=== PATIENT | male | born 1950 | race Caucasian/White ===

== ENCOUNTER 2018-06-18 20:06 | Inpatient (IN) | payer OTHER, BC ==
[~2018-06-18] VITALS: Ht 180.3 cm; Wt 84.5 kg
[2018-06-18 20:09] VITALS: BP 115/43
[2018-06-18] MEDS ORDERED: ASPIR 8181 MG PO (20:27)
[2018-06-18] MEDS ORDERED: BISACODYL SUPP10 MG RECTAL (20:28)
[2018-06-18] MEDS ORDERED: DEPAKOTE500 MG PO (20:29)
[2018-06-18] MEDS ORDERED: SYNTHROID88 MCG PO (20:29)
[2018-06-18] MEDS ORDERED: LISINOPRIL10 MG PO (20:29)
[2018-06-18] MEDS ORDERED: ATIVAN0.5 MG PO ×2 (20:31)
[2018-06-18] MEDS ORDERED: LORAZEPAM 22 MG/1 ML IM (20:31)
[2018-06-18] MEDS ORDERED: XALATAN2.5 ML OPHTHALMIC (20:35)
[2018-06-18] MEDS ORDERED: MAPAP325 MG PO (20:35)
[2018-06-18] MEDS ORDERED: METFORMIN HCL500 MG PO (20:35)
[2018-06-18] MEDS ORDERED: INVEGA SUS234 MG/1.5 IM (20:48)
[2018-06-18] MEDS ORDERED: GLUCAGON EMERGEN1 MG IM (20:49)
[2018-06-18] MEDS ORDERED: [UNRECOGNIZED DRUG - OTHER] (20:50)
[2018-06-18] MEDS ORDERED: SENEXON-S TABL1 EACH PO (20:51)
[2018-06-18] MEDS ORDERED: ROBAFEN100 MG/5 M PO (20:51)
[2018-06-18] MEDS ORDERED: EFFEXOR XR75 MG PO (20:52)
[2018-06-18] MEDS ORDERED: FLOMAX0.4 MG PO (20:52)
[2018-06-18 21:42] LABS: HEMATOCRIT 33.6 % (42.0-52.0); MCHC 32.7 g/dL (28.0-37.0); MCV 88.6 fL (80.0-100.0); PLATELET COUNT 245 thou/uL (150-400); RBC 3.79 mil/uL (4.50-6.00); RDW 16.1 % (10.5-14.5); WBC 18.4 thou/uL (4.0-11.0)
[2018-06-18 21:51] LABS: ANION GAP 7 mmol/L (7-16); BUN 21 mg/dL (7-18); CALCIUM 9.2 mg/dL (8.5-10.1); CHLORIDE 102 mmol/L (98-107); CO2 30 mmol/L (21-32); CREATININE 0.8 mg/dL (0.7-1.3); GLUCOSE 204 mg/dL (74-106); POTASSIUM 3.9 mmol/L (3.5-5.1); SODIUM 139 mmol/L (136-145)
[2018-06-18 21:54] LABS: APTT 28.1 Seconds (24.5-32.8); INR 1.3; PROTIME 13.6 Seconds (9.3-11.4)
[2018-06-18 22:00] LABS: ALBUMIN 2.6 g/dL (3.4-5.0); SGOT 9 U/L (15-37); SGPT 17 U/L (30-65); TOTAL BILIRUBIN 0.5 mg/dL (<0.1-1.0); TROPONIN-I <0.06 ng/mL (<0.06)
[2018-06-18 22:08] LABS: ABSOLUTE NEUTROPHILS 14.9 thou/uL (1.4-8.2); ANISOCYTOSIS 1+
[2018-06-18 23:52] VITALS: BP 116/49
[2018-06-19] VITALS (11 sets, daily range): BP systolic 110–133; BP diastolic 43–82
--- NOTE | 2018-06-19 00:37 | NUR ---
PT REPORTS NO KNOWN ALLERGIES, NO DRUG ALLERGIES, THIS WAS CONFIR[facility] WITH [facility] AT [facility]
--- NOTE | 2018-06-19 01:30 | EKG ---
[address] [address] ELECTROCARDIOGRAM REPORT Name: GEORGIA MCCLAIN Room #: 205-P ADM IN M.R.#: [id number] ������������������ Admission: 06/18/18 ������������������ Attend Phys: Jesús Dennison MD Discharge: ������������������ Date of : 52 Report #: [id number] ����������������������������������������������������������������� [id number] THIS REPORT FOR: //name// [facility] ED Test Date: 2018-06-18 Test Time: 21:56:02 Pat Name: GEORGIA MCCLAIN Department: Room: 205 Gender: M Sql Database Developer: LEIGH ANN : 1950 Requested By: Anjel Paige Order Number: [id number] MD: Joseph Rouse Measurements Intervals [place] Rate: 83 P: 34 VA: 174 QRS: 19 QRSD: 74 T: 32 QT: 344 QTc: 405 Interpretive Statements Sinus rhythm early transition Nonspecific ST-T wave changes Baseline wander in lead(s) V1,V2 No previous ECG available for comparison Electronically Signed On 06-19-2018 1:29:57 CDT by Joseph Rouse [email or web address] ��������������������������������������������� <ELECTRONICALLY SIGNED> ���������������������������������������� By: Joseph Rouse MD ��������������������������������������������� 06/19/18 0129 55 55 Joseph Rouse MD /EPI
--- NOTE | 2018-06-19 03:01 | NUR ---
PT ARRIVED ON UNIT FROM ER AT 0100. ADMITTED FROM [facility] WITH FREQUENT FALLS AND DIZZINESS. DENIES PAIN. VOIDING PER URINAL. RESTING COMFORTABLY. NO NEEDS VOICED. CALL LIGHT WITHIN REACH. WILL CONTINUE TO PROVIDE FREQUENT OBSERVATION.
[2018-06-19 05:20] LABS: HEMATOCRIT 30.2 % (42.0-52.0); HEMOGLOBIN 9.7 gm/dL (14.0-18.0); MCH 28.7 pg (26.0-34.0); MCHC 32.3 g/dL (28.0-37.0); MCV 88.8 fL (80.0-100.0); RBC 3.4 mil/uL (4.50-6.00); RDW 15.9 % (10.5-14.5); WBC 17.8 thou/uL (4.0-11.0)
[2018-06-19 05:25] LABS: CALCIUM 8.6 mg/dL (8.5-10.1); CREATININE 0.7 mg/dL (0.7-1.3); POTASSIUM 3.8 mmol/L (3.5-5.1)
--- NOTE | 2018-06-19 14:51 | NUR ---
Met with patient who reports he resides in Assisted living at [facility]. Patient reports he resides on 3rd floor. On 3rd floor there are stairs so cannot use a walker on 3rd floor and second floor has ramp. Sp with Rupinder at [facility] who reports they were already in process of transition to second floor. They believed patient likely would go to skilled unit prior to returning to Assisted Living. Sister reports thats an assumption on their part and not sure that is needed at this time. Casemgt following.
--- NOTE | 2018-06-19 16:17 | NUR ---
PT. RESIDES AT [facility] FAXED CLINICAL UPDATE TO FACILITY SPOKE WITH BERYL IN ADM, SHE RECEIVED UPDATE. DCP TO FOLLOW.
--- NOTE | 2018-06-19 16:47 | NUR ---
PT ALERT AND ORIENTED TIMES FOUR, SOMEWHAT SLOW TO RESPOND TO QUESTIONS. VSS, 98%2L, SR ON TELE. PT DENIES PAIN/SOA. PT TOLERATES MEDS AND MEALS. PT UP TO BSC WITH ASSIST OF ONE. FAMILY AT BEDSIDE. PT SLOWLY PROGRESSING TOWRADS POC GOALS.
--- NOTE | 2018-06-20 02:24 | NUR ---
ASSESSMENT DOCUMENTED.PT BEEN RESTING IN NO ACUTE DISTRESS.A/OX4.ADMITTED D/T HAVING MUTIPLE FALLS AT HOME.FALL PRECAUTIONS IN PLACE.ASSIST WITH TOILETING.FREQUENT REMINDER TO USE CALL LIGHT.ON ABT THERAPY,TOLERATING.NO CONCERNS NOTED.WILL CONT TO MONITOR PER POC.
[2018-06-20 04:20] VITALS: BP 132/59
[2018-06-20 07:25] VITALS: BP 131/59
[2018-06-20 11:08] VITALS: BP 130/59
[2018-06-20 11:12] LABS: FOLIC ACID 19.5 ng/mL (8.6-58.9)
[2018-06-20 15:29] VITALS: BP 130/46
--- NOTE | 2018-06-20 15:31 | NUR ---
Physical therapy signed off recommendation of walker. Casemgt in process of obtaining walker for home. Neuro consulted. casemgt following for possible HH at [place].
[2018-06-20 19:45] VITALS: BP 135/53
[2018-06-20 23:11] LABS: URINE BILIRUBIN NEGATIVE (Negative); URINE BLOOD NEGATIVE (Negative); URINE CLARITY SL CLOUDY; URINE COLOR YELLOW; URINE GLUCOSE-RANDOM* NEGATIVE (Negative); URINE KETONES NEGATIVE (Negative); URINE LEUKOCYTES-REFLEX NEGATIVE (Negative); URINE NITRITE-REFLEX NEGATIVE (Negative); URINE PROTEIN (DIPSTICK) NEGATIVE (Negative); URINE SPECIFIC GRAVITY 1.015 (1.005-1.035)
[2018-06-21 04:03] LABS: CALCIUM 8.8 mg/dL (8.5-10.1); CREATININE 0.6 mg/dL (0.7-1.3); MAGNESIUM 1.8 mg/dL (1.8-2.4); POTASSIUM 3.8 mmol/L (3.5-5.1)
[2018-06-21 04:19] LABS: HEMATOCRIT 31.1 % (42.0-52.0); HEMOGLOBIN 10.1 gm/dL (14.0-18.0); MCHC 32.6 g/dL (28.0-37.0); MCV 89.1 fL (80.0-100.0); PLATELET COUNT 260 thou/uL (150-400); RBC 3.49 mil/uL (4.50-6.00); RDW 15.9 % (10.5-14.5); WBC 11.1 thou/uL (4.0-11.0)
--- NOTE | 2018-06-21 04:43 | NUR ---
following poc with ivpb antibiotics. hourly rounding. collected urine sample and results are back. will follow up to make sure neuro consult has been called as it is not documented in the orders. pt only complaint is he wants doctor to change his divalproex due to making him feel funny.
[2018-06-21 04:55] VITALS: BP 130/53
[2018-06-21 05:06] LABS: ABSOLUTE NEUTROPHILS 6.7 thou/uL (1.4-8.2)
[2018-06-21 05:07] LABS: PLATELET ESTIMATE NORMAL; POLYCHROMASIA 1+
[2018-06-21 07:05] VITALS: BP 129/60
[2018-06-21 11:16] VITALS: BP 119/58
--- NOTE | 2018-06-21 14:02 | NUR ---
Patient admits from [facility] 3rd floor assisted living. Patient cannot have walker on 3RD floor. PT has recommened home with HH. OT recommends HH but needs supervision for bathing initially at ma. Nikki Yeh from [facility] completed onsite eval today. They use [facility]. [facility] reports can fax orders to them in am and they will arrange HH with [facility] they have office in [facility] and walk orders to HH agency. Sp with sister and patient they have no preference for HH agency and agreeable to [facility]. Sister to transport to [facility]. There is an apt on second floor for patient and he will transition to second floor at ma. Family moving his belongings today to second floor apt. Therapy recommended a walker, rec script and patient has walker for home. Plan HH at ma possibly ma tomorrow.
--- NOTE | 2018-06-21 15:27 | NUR ---
ASSESSMENT CHARTED - MEDS PER MAY -PT UP IN CHAIR AMBULATING IN ROOM WITH THE USE OF A WALKER. SEEN BY PHYS AND OCC THERAPY THIS SHIFT - MARYANN DIET AND FLUIDS - NO CO'S OF PAIN OR NASUEA. PT WILL PROBABLY RETURN TO [facility] TOMORROW. NO CO'S AT THE PRESENT TIME.
--- NOTE | 2018-06-21 17:58 | EEG ---
[facility] [place] [address] ELECTROENCEPHALOGRAM Name: GEORGIA MCCLAIN Room #: 205-P [facility] IN M.R.#: [id number] ������������������ Admission: 06/18/18 ������������������ Attend Phys: Puja Lucero MD Discharge: ������������������ Date of : 52 Report #: [id number] ����������������������������������������������������������������� [id number] THIS REPORT FOR: //name// CC: Puja Joyh [facility] DATE OF SERVICE: 06/20/2018 This patient is being evaluated for possibility of seizures. The patient's EEG was done by placing the electrode by standard 10-20 system of electrode placement. Both referential and sequential montages were used for recording. Background activity in this patient's EEG is about 11 Hz and 30 microvolt. This patient became drowsy and that is associated with bilateral slowing and vertex sharp waves. Photic stimulation is unremarkable. Throughout the record, no active epileptiform activity was noticed. IMPRESSION: This patient's EEG is within normal limit. Thank you very much for this referral. ���������������������������������������� <ELECTRONICALLY SIGNED> ���������������������������������������� By: Armando Gleason MD ��������������������������������������������� 06/21/18 1758 1411 1513 Armando Gleason MD /nt
--- NOTE | 2018-06-21 18:00 | HC ---
[facility] [place] [address] CONSULTATION Name: GEORGIA MCCLAIN Room #: 205-P [facility] IN M.R.#: [id number] Admission: 06/18/18 ������������������ Attend Phys: Puja Lucero MD Discharge: ������������������ Date of : 51 Report #: [id number] THIS REPORT FOR: //name// CC: Puja Powell DATE OF SERVICE: 06/20/2018 HISTORY OF PRESENT ILLNESS: This is a 67-year-old male patient who was evaluated by me for any neurological cause for his presyncope-like episode. He says that he had falls. During the falls, he is fully conscious. He says that he lose strength in all 4 extremities. He says he is a diabetic, but nobody has checked her blood pressure or blood sugar during these episodes. He does have intermittent dizziness, but nobody has checked his blood pressure or pulse. I reviewed the patient's MRI and MRA and they were unremarkable. REVIEW OF SYSTEMS: Positive for multiple things. They include diabetes, hypothyroidism, anxiety, depression. 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 He has stayed inside that time. Presently, he lives in assisted living. He does not give me a good reason he was in assisted living. He has history of hyperlipidemia, benign prostatic hypertrophy, urinary tract infections, hypothyroidism, depression and anxiety. This was his relevant 14-point review of system. PAST MEDICAL HISTORY: Positive for these falls. FAMILY HISTORY: Negative for any early age stroke. SOCIAL HISTORY: He lives in assisted living. PHYSICAL EXAMINATION: Indicate he is alert, responsive, able to follow simple commands. His memory is somewhat diminished, but I think that is his baseline. Cranial nerve examination on my examination appear mostly unremarkable. There has been question of nystagmus in this patient. His strength, sensation, reflexes and tone are symmetrical. There is no asymmetry in his reflexes. There is no cerebellar sign. I could not look at the patient's fundus. The patient is a well-developed individual who does not have any dysmorphic features of eyes, ears and face. His vision and hearing are adequate. He has no thyroid mass. No respiratory difficulty or rhonchi on either side. Cardiac examination is unremarkable. Pulses are difficult to feel. There is no edema. Blood pressure is 130/46, respirations 18, pulse is 78, temperature is 98.5. LABORATORY DATA: White count is 17.8 and GFR is normal at 113. TSH is 351 and B12 is 263. IMPRESSION: I told him that the etiology of his spell is not clear. The [address] [address] CONSULTATION Name: GEORGIA MCCLAIN Room #: 205-P [facility] IN M.R.#: [id number] Admission: 06/18/18 ������������������ Attend Phys: Puja Lucero MD Discharge: ������������������ Date of : 51 Report #: [id number] thing he should do is that when he has dizziness, he should check for his blood pressure, pulse and blood sugar. Those will be more common cause for the symptoms he is having. If they are normal, then the further workup can be done. I do not know what further neurological workup can be done because his MRIs and MRA are unremarkable. I did order an EEG and if that is abnormal, we will follow up this patient, but if that is normal, neurologically limited thing can be done. time spent 50 minutes. Majority of that time was spent counseling and coordinating Thank you very much for this referral. ��������������������������������������������� <ELECTRONICALLY SIGNED> ���������������������������������������� By: Armando Gleason MD ��������������������������������������������� 06/21/18 1800 1617 0507 Armando Gleason MD /nt
[2018-06-21 19:41] VITALS: BP 151/74
[2018-06-22 03:28] VITALS: BP 147/62
[2018-06-22 03:55] VITALS: BP 147/62
[2018-06-22 07:37] VITALS: BP 146/69
--- NOTE | 2018-06-22 07:55 | NUR ---
PT AO X 4. DENIES PAIN. VITALS STABLE. BG STABLE. CONTINUES WITH ABX. WILL CONTINUE TO FOLLOW POC.
[2018-06-22] MEDS ORDERED: IPRAT-ALBUT 0.5-3 ML INH (11:40)
[2018-06-22] MEDS ORDERED: AUGMENTIN 875-1 EACH PO (11:40)
[2018-06-22] MEDS ORDERED: B-12500 MCG PO (11:40)
[2018-06-22 11:49] VITALS: BP 147/62
[2018-06-22 11:58] VITALS: BP 102/61
--- NOTE | 2018-06-22 12:59 | NUR ---
PT. [facility] SPOKE WITH BERYL IN ADM. SHE RECEIVED DC ORDERS AND WILL SET UP HH WITH THEIR AGENCY. FAMILY TO TRANSPORT PT. BACK TO HIS A.L.UNIT NOTIFIED AND CHART COPY PER US. RN TO CALL REPORT TO [phone].
--- NOTE | 2018-06-22 15:02 | NUR ---
ASSESSMENT CHARTED - MEDS PER [facility] - NO CO'S OF PAIN OF NAUSEA - MARYANN DIET AND FLUIDS. PT UP IN ROOM WITH THE USE OF WALKER. [facility]. MONITOR AND IV REMOVED PRIOR TO D/C. PT TRANSFERED BACK VIA PVT VEHICLE ACCOMPANIED BY SISTER, LEFT UNIT VIA WHEEL CHAIR - NO CO'S AT TIME OF D/C.
== END 2018-06-22 14:55 | disposition home or self-care (01) | DRG 871 ==
LOC: ER 20:06 → 2N 22:53 → EROBS 22:53 → 2N 06-19 00:40 → ENTRNSPT 06-22 14:38 → EDTRNSPTSTS 06-22 14:46 → 2N 06-22 14:55
PROVIDERS: Emergency Medicine; Internal Medicine; Nurse Practitioner Family; ADMIT Internal Medicine
DX: A41.9 Sepsis, unspecified organism (principal); J69.0 Pneumonitis due to inhalation of food and vomit; I10 Essential (primary) hypertension; E78.5 Hyperlipidemia, unspecified; E11.9 Type 2 diabetes mellitus without complications; E03.9 Hypothyroidism, unspecified; N40.0 Benign prostatic hyperplasia without lower urinary tract symptoms; F32.9 Major depressive disorder, single episode, unspecified; F41.9 Anxiety disorder, unspecified; H55.09 Other forms of nystagmus; F20.9 Schizophrenia, unspecified; Z60.2 Problems related to living alone; M62.84 Sarcopenia; F39 Unspecified mood [affective] disorder; E53.8 Deficiency of other specified B group vitamins; Z87.891 Personal history of nicotine dependence; Z79.899 Other long term (current) drug therapy; Z79.82 Long term (current) use of aspirin
CPT/HCPCS: 10081

== ENCOUNTER → 2018-08-30 | Outpatient (CLI) | payer OTHER, BC ==
[~2018-08-30] MED LIST: ASPIR 8181 MG PO; ATIVAN0.5 MG PO; AUGMENTIN 875-1 EACH PO; B-12500 MCG PO; BISACODYL SUPP10 MG RECTAL; DEPAKOTE500 MG PO; EFFEXOR XR75 MG PO; FLOMAX0.4 MG PO; GLUCAGON EMERGEN1 MG IM; INVEGA SUS234 MG/1.5 IM; IPRAT-ALBUT 0.5-3 ML INH; LISINOPRIL10 MG PO; LORAZEPAM 22 MG/1 ML IM; MAPAP325 MG PO; METFORMIN HCL500 MG PO; MILK OF MA400 MG/5 M PO; ROBAFEN100 MG/5 M PO; SENEXON-S TABL1 EACH PO; SYNTHROID88 MCG PO; TRELEGY ELLIPT1 EACH; XALATAN2.5 ML OPHTHALMIC; [UNRECOGNIZED DRUG - OTHER]
== END ==
LOC: NUC 10:09
DX: M62.84 Sarcopenia (principal)

== ENCOUNTER 2018-09-03 19:02 | Inpatient (IN) | payer OTHER, BC ==
[~2018-09-03] VITALS: Ht 175.3 cm; Wt 88.1 kg
[~2018-09-03 19:02] MED LIST changes: -MILK OF MA400 MG/5 M PO; -TRELEGY ELLIPT1 EACH
[2018-09-03 19:07] VITALS: BP 135/50
[2018-09-03 19:27] LABS: HEMATOCRIT 34.5 % (42.0-52.0); MCH 28.1 pg (26.0-34.0); MCV 88.1 fL (80.0-100.0); PLATELET COUNT 212 thou/uL (150-400); RBC 3.92 mil/uL (4.50-6.00); RDW 17.1 % (10.5-14.5); WBC 20.3 thou/uL (4.0-11.0)
[2018-09-03 19:35] LABS: ANION GAP 12 mmol/L (7-16); BUN 25 mg/dL (7-18); CALCIUM 9.9 mg/dL (8.5-10.1); CHLORIDE 104 mmol/L (98-107); CO2 25 mmol/L (21-32); CREATININE 0.9 mg/dL (0.7-1.3); GLUCOSE 175 mg/dL (74-106); POTASSIUM 4.1 mmol/L (3.5-5.1); SODIUM 141 mmol/L (136-145)
[2018-09-03 19:43] LABS: TROPONIN-I <0.06 ng/mL (<0.06)
[2018-09-03 20:09] LABS: ABSOLUTE NEUTROPHILS 15.4 thou/uL (1.4-8.2); ANISOCYTOSIS 1+
[2018-09-04 01:33] LABS: URINE BILIRUBIN NEGATIVE (Negative); URINE BLOOD NEGATIVE (Negative); URINE CLARITY CLEAR; URINE COLOR YELLOW; URINE GLUCOSE-RANDOM* NEGATIVE (Negative); URINE KETONES NEGATIVE (Negative); URINE LEUKOCYTES-REFLEX NEGATIVE (Negative); URINE NITRITE-REFLEX NEGATIVE (Negative); URINE PROTEIN (DIPSTICK) NEGATIVE (Negative); URINE UROBILINOGEN 0.2 E.U./dl (0.2-1.0)
[2018-09-04 01:48] VITALS: BP 132/60
[2018-09-04] MEDS ORDERED: MILK OF MA400 MG/5 M PO (02:20)
[2018-09-04] MEDS ORDERED: TRELEGY ELLIPT1 EACH (02:21)
[2018-09-04] MEDS ORDERED: ROBAFEN100 MG/5 M PO (02:22)
[2018-09-04] MEDS ORDERED: MAPAP325 MG PO (02:24)
[2018-09-04 02:35] VITALS: BP 123/46
[2018-09-04 03:14] VITALS: BP 144/57
--- NOTE | 2018-09-04 04:49 | NUR ---
PT. ARRIVED ON THE UNIT FROM ED WITH HX OF FREQ FALLS. SLIGHT RED BRUISE ON BUTTOCKS NOTED AND 2 SCRATCHES ON KNEES FROM PREVIOUS FALLS . ALERT AND ORIENTEDX3 WITH SLIGHT WEAKNESS. DENIES PAIN. VSS AND ORDERS ACKNOWLEGDE. BED IN LOW POSITION AND CALL LIGHT WITHIN REACH WILL CONTINUE TO MONITOR.
[2018-09-04 07:45] VITALS: BP 140/50
--- NOTE | 2018-09-04 07:47 | EKG ---
[address] [address] ELECTROCARDIOGRAM REPORT Name: ZENGEORGIA MCCULLOUGH Zelalem Room #: 429-P ADM IN M.R.#: [id number] ������������������ Admission: 09/04/18 ������������������ Attend Phys: Puja Lucero MD Discharge: ������������������ Date of : 52 Report #: [id number] ����������������������������������������������������������������� [id number] THIS REPORT FOR: //name// [facility] ED Test Date: 2018-09-03 Test Time: 19:37:24 Pat Name: GEORGIA MCCLAIN Department: Room: 429 Gender: M Manager Process: QUETA : 1950 Requested By: Anjel Paige Order Number: [id number] MD: Fuentes Allred Measurements Intervals [place] Rate: 80 P: 24 DC: 166 QRS: 27 QRSD: 82 T: 49 QT: 358 QTc: 413 Interpretive Statements Sinus rhythm Normal tracing Compared to ECG 06/18/2018 21:56:02 No significant change was found Electronically Signed On 09-04-2018 7:47:40 CDT by Fuentes Allred [email or web address] ��������������������������������������������� <ELECTRONICALLY SIGNED> ���������������������������������������� By: Fuentes Allred MD, [facility] ��������������������������������������������� 09/04/18 0747 D: 06/1935 36 Fuentes Allred MD, FACC /EPI
--- NOTE | 2018-09-04 08:54 | NUR ---
ASSESMENT COMPLETED. VSS. A/O. NOTED TREMORS. DENIES PAIN. NO NOTED SOA. NO NV. PT RESTING IN BED. MEDS GIVEN ORDERED TOLERATED WELL. BED ALARM ON. WILL CONT. TO MONITOR.
--- NOTE | 2018-09-04 10:43 | NUR ---
INITIAL ASSESSMENT: Pt evaluated for d/c planning needs. Reviewed chart and spoke with nurse, pt and sister. Pt is alert and oriented. Pt normally lives at [facility] and was recently hospitalized at [facility] and went to [facility] SNF. Pt plans on returning to SNF at d/c from hospital. Asked program services planner to fax referral to [facility]. Will remain available to assist as needed.
[2018-09-04 17:49] VITALS: BP 138/48
[2018-09-04 20:50] VITALS: BP 128/48
--- NOTE | 2018-09-05 01:02 | NUR ---
ASSESSMENT COMPLETED. PT IS ALERT AND ORIENTED. A LITTLE FORGETFUL. PT SEEMS WEAK AND REPORTS CONTINUED WEAKNESS. STABLE ON ROOM AIR. AFEBRILE. NO COUGH NOTED.TOOK HS MEDS OKAY. HS BLOOD SUGAR OF 83.CONTINUES ON IV ABTS FOR PNEUMONIA.FALL PREC IN PLACE. WILL CONTINUE WITH POC TILL EOS.
[2018-09-05 05:30] VITALS: BP 181/66
[2018-09-05 05:59] LABS: HEMOGLOBIN 10.3 gm/dL (14.0-18.0); MCH 28.9 pg (26.0-34.0); MCHC 33.2 g/dL (28.0-37.0); RBC 3.57 mil/uL (4.50-6.00); RDW 17.5 % (10.5-14.5); WBC 8.7 thou/uL (4.0-11.0)
[2018-09-05 06:10] LABS: CALCIUM 8.7 mg/dL (8.5-10.1); CREATININE 0.7 mg/dL (0.7-1.3); POTASSIUM 3.7 mmol/L (3.5-5.1)
[2018-09-05 08:00] VITALS: BP 136/53
--- NOTE | 2018-09-05 09:12 | NUR ---
ASSESMENT COMPLETED. VSS. A/O. DENIES PAIN. NO NOTED SOA. NO NV. PT RESTING IN BED APPEARS COMFORTABLE. ASSISTED WHEN UP. BED ALARM ON. WILL CONT. TO MONITOR.
[2018-09-05 15:08] LABS: FOLIC ACID 17.4 ng/mL (8.6-58.9)
[2018-09-05 16:20] VITALS: BP 156/60
--- NOTE | 2018-09-05 19:29 | HC ---
[facility] [place] [address] CONSULTATION Name: ZENJAMELGEORGIA Room #: 429-P [facility] IN .R.#: [id number] Admission: 09/04/18 ������������������ Attend Phys: Puja Lucero MD Discharge: ������������������ Date of : 51 Report #: [id number] THIS REPORT FOR: //name// CC: Puja Powell DATE OF SERVICE: 09/04/2018 PULMONARY CONSULTATION REFERRAL PHYSICIAN: Dr. Miller. REASON FOR REFERRAL: Infiltrates. HISTORY OF PRESENT ILLNESS: The patient is a 68-year-old white male who was brought to the Emergency Room with progressive weakness. He fell again. He has recent pneumonia along with infiltrates. A pulmonary consultation was requested. The patient was most recently re-hospitalized at [facility] on 06/18/2018. He was admitted for presyncopal like episode along with falls. He also noted to develop weakness. The patient was recently seen in the pulmonary office by Dr. Tineo. His chest x-ray, chest CT showed consolidation involving the right lower lobe, right middle lobe and nodular opacity seen in the right middle lobe. Plans were to proceed with a PET scan imaging. In brief summary, the patient has been well up until of this past year. He then started to develop weakness along with falls. He states he has also lost weight. During his recent hospital stay, he was seen by Neurology. MRI, MRA of the brain was unremarkable. The EEG was abnormal. Otherwise, the patient denies any fever, night sweats or chills, chest pain, productive cough. PAST MEDICAL HISTORY: Atrial fibrillation, anxiety, depression, diabetes mellitus type 2, hypertension, hypothyroidism, schizophrenia. PAST SURGICAL HISTORY: Unremarkable. ALLERGIES: None. HOME MEDICATIONS: Acetaminophen, aspirin 81 mg once a day, Depakote 500 mg once a day, Robitussin p.r.n., Xalatan eyedrops 0.005% one drop at bedtime, Synthroid 88 mcg once a day, lisinopril 10 mg once a day, Ativan 0.5 mg q. 6 hours p.r.n., Glucophage 500 mg p.o. b.i.d., Flomax 0.4 mg once a day, Effexor 150 mg p.o. [address] [address] CONSULTATION Name: GEORGIA MCCLAIN Zelalem Room #: 429-P [facility].#: [id number] Admission: 09/04/18 ������������������ Attend Phys: Puja Lucero MD Discharge: ������������������ Date of : 52 Report #: [id number] b.i.d. along with Herminia-Colace and GlycoLax. FAMILY HISTORY: Noncontributory. SOCIAL HISTORY: Lifetime nonsmoker. He is . Denies any alcohol use. REVIEW OF SYSTEMS: As mentioned above, otherwise 10-point system review negative. PHYSICAL EXAMINATION: GENERAL: He is awake, alert, in no distress. VITAL SIGNS: Temperature is 98.5 degrees Fahrenheit, pulse is 76, respiratory rate 18, blood pressure is 140/50 mmHg, and saturation 93%. HEENT: Normocephalic, atraumatic. NECK: Supple, without any lymphadenopathy or thyromegaly. CHEST: Air movements are decreased due to poor effort. Few scattered crackles in the bases. Otherwise, no wheezes. CARDIOVASCULAR: Normal S1, S2. There are no murmurs or gallop. There is no JVD. There is no carotid bruit. Pulses are 2+/4+ bilaterally. ABDOMEN: Soft, nontender, no organomegaly or masses felt. GENITOURINARY: Deferred. RECTAL: Deferred. EXTREMITIES: There is no edema, cyanosis or clubbing. LABORATORY DATA: Chest x-ray shows mild right lower lobe and left lower lobe infiltrates. CT chest performed on 08/04/2018 shows consolidation involving the right middle lobe, mild infiltrate in the right lower lobe with small right-sided pleural effusion. CT head was unremarkable for any acute changes. Valproic acid level is 25. Procalcitonin level is normal. Electrolytes are normal. WBC 20,300, hemoglobin 11.0, platelets normal, no evidence of bandemia. IMPRESSION: 1. Progressive weakness, falls in this 68-year-old white male. Recent MRI/MRA was unremarkable along with EEG. He was recently seen by Neurology. Etiology remains unclear. 2. Right middle lobe, right lower lobe consolidation, small nodule opacities seen in the right middle lobe, suspect aspiration pneumonia. PET scan has been scheduled for this Tuesday at [facility]. Plans are for possible bronchoscopy with biopsy, pending results of the PET scan. 3. Chronic obstructive pulmonary disease, severe impairment, FEV1 measured 1.6 49% predicted, Trelegy has been recently initiated. 4. Hypothyroidism, on Synthroid. 5. Schizophrenia/anxiety/depression. 6. Diabetes mellitus type 2. 7. Hypertension. 8. Hypothyroidism. [facility] [address] [place] [address] CONSULTATION Name: GEORGIA MCCLAIN Room #: 429-P ADM IN .R.#: [id number] Admission: 09/04/18 ������������������ Attend Phys: Puja Lucero MD Discharge: ������������������ Date of : 52 Report #: [id number] RECOMMENDATION: I think it is reasonable to continue antibiotics, though I think this may be residual infiltrates from his recent pneumonia. Could consider reducing antibiotics if the patient remains afebrile. Leukocytosis may be reactive. Followup chest x-ray. The patient may benefit from ongoing neurologic evaluation regarding his progressive weakness and falls. DVT and GI prophylaxis recommended. ��������������������������������������������� <ELECTRONICALLY SIGNED> ���������������������������������������� By: Sylvain Flores MD ��������������������������������������������� 09/05/18 1929 1818 0202 Sylvain Flores MD /nt
[2018-09-05 21:55] VITALS: BP 137/49
[2018-09-06 03:00] VITALS: BP 170/59
--- NOTE | 2018-09-06 07:55 | NUR ---
PT DENIES PAIN. IS CONTINENT/INCONTINENT. DOING WELL ON ROOM AIR. GETTING RT TREATMENTS. PLAN FOR SOME MRI AND CT CHEST TODAY. PT AWARE OF PLAN.HE IS COOPERATIVE.
[2018-09-06 08:51] VITALS: BP 131/55
[2018-09-06 11:07] LABS: PSA 1.5 ng/mL (0.0-4.0)
--- NOTE | 2018-09-06 11:28 | NUR ---
FAXED REFERRAL TO [facility] FOR SKILLED STAY SPOKE WITH BERYL IN ADM SHE CAN ACCEPT PT AT DC. DCP TO FOLLOW.
--- NOTE | 2018-09-06 16:14 | NUR ---
Assumed pt care at 7am.Pt in bed alert and oriented but slow to respond. Assessment completed.vss.Dr Lucero here,order noted.Pt brother in law requested for Dr Machuca to call him for pt updates.Pt left for mri early this am and returned to floor 2hours later.Meds given as ordered and well tolerated. No verbal c/o.Will continue to monitor.
[2018-09-06 17:00] VITALS: BP 128/57
[2018-09-06 19:33] VITALS: BP 123/55
[2018-09-07 04:56] LABS: HEMATOCRIT 32.2 % (42.0-52.0); HEMOGLOBIN 10.5 gm/dL (14.0-18.0); MCH 28.9 pg (26.0-34.0); MCHC 32.7 g/dL (28.0-37.0); MCV 88.3 fL (80.0-100.0); RBC 3.65 mil/uL (4.50-6.00); WBC 6.8 thou/uL (4.0-11.0)
[2018-09-07 05:06] LABS: CALCIUM 8.6 mg/dL (8.5-10.1); CREATININE 0.7 mg/dL (0.7-1.3); POTASSIUM 3.8 mmol/L (3.5-5.1)
[2018-09-07 05:08] VITALS: BP 136/56
--- NOTE | 2018-09-07 05:16 | NUR ---
PT DENIED PAIN SO FAR.TYLENOL GIVEN X1 FOR LOW GRADE TEMP,EFFECTIVE.URINAL AT BEDSIDE FOR ELIMINATION.BG AT HS 83,NO TX INITIATED.PT RESTING ON HIS BED AT THIS TIME.FALL PRECAUTIONS IN PLACE,CALL LIGHT WITHIN REACH.
[2018-09-07 07:39] VITALS: BP 140/57
[2018-09-07 15:56] VITALS: BP 118/46
[2018-09-07 17:07] LABS: ANA INTERPRETATION Negative (())
[2018-09-07 19:27] VITALS: BP 136/50
--- NOTE | 2018-09-07 19:46 | NUR ---
Assumed pt care at 7am.Pt in and out of room for test.Assessment completed.vss Dr Hurtado and Brigette here,order noted.Pt sister was here today wanted to know if pt will be dc today.Rn told her that no dc order written for today but should check in am.Pt has speech study today and lashon perez recommended.Pt up to br with assist voided but no bm.Later this evening,pt was premed and Immunoglobulin iv initiated.Report off to noc rn.
--- NOTE | 2018-09-08 02:33 | NUR ---
PT DENIED PAIN BUT C/O CONSTIPATION.PER EMAR,PT GOT MIRALAX FROM AM NURSE BEFORE SHIFT CHANGE.PT GOT UP TO THE BSC WITH ASSIST X1 BUT WAS NOT ABLE TO HAVE A BM.WAS ONLY ABLE TO GET ONE PEBBLE OF HARD STOOL OUT.PT STILL CONFUSED AND FORGETFUL.FALL PRECAUTIONS IN PLACE,CALL LIGHT WITHIN REACH.
[2018-09-08 03:38] VITALS: BP 126/50
[2018-09-08 07:30] VITALS: BP 144/60
[2018-09-08 11:07] LABS: CEA 1.9 ng/mL (0.0-4.7)
--- NOTE | 2018-09-08 15:47 | NUR ---
FAXED CLINICAL UPDATE TO [facility] LEFT MS WITH BERYL IN ADM THAT UPDATE HAS BEEN SENT. POSS DC TUESDAY. DCP TO FOLLOW.
--- NOTE | 2018-09-08 16:27 | NUR ---
PT IN AND OUT OF BED TODAY FOR EXERCISES.FAIR ENDURANCE NOTED.ASSISTED PT WITH TRAY SETUP AT ALL MEALS.FAIR APPETITE.PT TOLERATED MEDS AND UP TO BSC FOR SMALL HARD FORMED STOOL AFTER MIRALAX GIVEN.DR TURNER HERE,ORDER NOTED.PT WILL HAVING ANOTHER DOSE IGG TODAY.BROTHER IN LAW HERE,UPDATES GIVEN.WILL CONTINUE TO MONITOR.
[2018-09-08 19:55] VITALS: BP 124/59
--- NOTE | 2018-09-09 02:05 | NUR ---
ASSESSMENT COMPLETED.PT CONT ON SWALLOW PRECAUTIONS.UP WITH ASSIST X1 AND WALKER TO BR.PT STILL ON IV IGG AND ZOSYN ORDERED.NO BM NOTED SO FAR,MIRALAX GIVEN BY AM NURSE.PT DENIED PAIN SO FAR,RESTING QUIETLY ON HIS BED AT THIS TIME.FALL PRECAUTIONS IN PLACE,CALL LIGHT WITHIN REACH.
--- NOTE | 2018-09-09 02:15 | NUR ---
ASSESSMENT COMPLEETD.PT DENIED PAIN/N/ SO FAR.PT CONT WITH IV IGG AND ZOSYN ORDERED.UP TO THE BR WITH 1 ASSIST AND WALKER.PT HAD ONE SMALL HARD BROWN STOOL,CONT ON MIRALAX DAILY.FALL AND SWALLOW PRECAUTIONS MAINTAINED.CALL LIGHT WITHIN REACH.
[2018-09-09 03:45] VITALS: BP 128/51
[2018-09-09 08:16] VITALS: BP 146/57
--- NOTE | 2018-09-09 15:27 | NUR ---
PT A&OX4, AMBULATES WITH ASSIST X1 AND WALKER. IV INTACT IN L FA AND R HAND. SITTING PT WITH ALL MEALS, NECTAR THICKENED LIQUIDS. WEAKNESS NOTED. BED ALARM ON, CALL LIGHT W/I REACH. WILL CONT POC.
[2018-09-09 16:23] VITALS: BP 129/53
[2018-09-09 19:26] VITALS: BP 146/58
--- NOTE | 2018-09-10 00:54 | NUR ---
PATIENT ALERT AND ORIENTED X4. COOPERATIVE WITH CARE. IVPB INFUSING W/O COMPLICATION. ASSIST WITH MOVEMENT IN BED. DENIES PAIN. BLOOD SUGAR MONITORED PER ORDER. PATIENT REMAINS VERY WEAK. TOLERATING NECTAR THICK LIQUIDS W/O COMPLICATION. RESTING QUIETLY AT TIME OF NOTE. WILL MONITOR.
[2018-09-10 05:24] VITALS: BP 145/74
[2018-09-10 07:07] VITALS: BP 137/62
--- NOTE | 2018-09-10 14:06 | NUR ---
PT A&OX4, TRANSFERS TO [facility] WITH GAIT BELT AND ASSIST X1. IV INTACT IN L FA AND R HAND. CONSTIPATION RESOLVED OF YESTERDAY. REQUIRED DIGITAL STIMULI WITH RESULT OF MED FORMED OLIVIA GONZALEZ. PT IS UNSTEADY AND WEAKNESS NOTED WHEN STANDING. BED ALARM ON, CALL LIGHT W/I REACH. WILL CONT POC.
[2018-09-10 16:12] VITALS: BP 136/53
--- NOTE | 2018-09-10 18:39 | NUR ---
XFER PT XFER FROM . PT ORIENTED TO ROOM.
[2018-09-10 19:45] VITALS: BP 125/67
--- NOTE | 2018-09-11 02:50 | NUR ---
ASSUMED CARE AROUND 1900. AXOX3. NO S/S ACUTE DISTRESS NOTED OR REPORTED AT THIS TIME. WILL CONT TO MONITOR FOR ANY CHANGES IN CONDITION.
[2018-09-11 03:55] VITALS: BP 142/67
[2018-09-11 05:43] LABS: HEMATOCRIT 30.1 % (42.0-52.0); HEMOGLOBIN 10.3 gm/dL (14.0-18.0); MCHC 34.4 g/dL (28.0-37.0); MCV 87.2 fL (80.0-100.0); RBC 3.44 mil/uL (4.50-6.00); WBC 6.3 thou/uL (4.0-11.0)
[2018-09-11 05:58] LABS: ALBUMIN 2.2 g/dL (3.4-5.0); CALCIUM 8.4 mg/dL (8.5-10.1); CREATININE 0.6 mg/dL (0.7-1.3); POTASSIUM 4.3 mmol/L (3.5-5.1); TOTAL BILIRUBIN 0.7 mg/dL (<0.1-1.0); TOTAL PROTEIN 7.8 g/dL (6.4-8.2)
[2018-09-11 07:53] VITALS: BP 142/65
--- NOTE | 2018-09-11 14:04 | NUR ---
Discharge Planning: kyra sent updates to Nely at [facility], the patient will retrun when stable.
[2018-09-11 15:00] VITALS: BP 122/58
--- NOTE | 2018-09-11 17:17 | NUR ---
PT GOT LAST DOSE OF IVIG ANTICIPATE PT RETURNING TO [facility] SKILLED TOMORROW. CM TO FOLLOW INDICATED WITH DC PLANNING.
[2018-09-11 20:01] VITALS: BP 147/57
--- NOTE | 2018-09-11 20:31 | NUR ---
Received awake on bed. Due medications given as prescribed- Pts medication crushed and mixed with apple sauce- able to swallow w/o difficulty. Pt A+O x 3-4, flat affect. Visited by grey in law today, wanted to talk to CM- CM informed, he also wanted to talk to Neurologist, he has to go so he just left note for Neurologist instead, havent seen him the whole shift- handed the note to shift commander just incase has his rounds late. Pt seen by speech therapist today, Had Pt session today as well. On room air. On blood sugar monitoring- taken and recorded accordingly. Incontinent of B/B- changed as regularly and as needed. With redness at buttocks, pt turned regularly. Falls risk- falls bundle in place. Pt had last dose of IVIG today, for possible d/c tomorrow. With consult for rehab- consult called in this PM. Vital signs stable the whole shift, Pt assisted in ADLs today.
[2018-09-12 03:33] VITALS: BP 145/69
[2018-09-12 03:33] LABS: HEMATOCRIT 30.1 % (42.0-52.0); HEMOGLOBIN 10.4 gm/dL (14.0-18.0); MCH 31.5 pg (26.0-34.0); MCHC 34.6 g/dL (28.0-37.0); RBC 3.3 mil/uL (4.50-6.00); RDW 16.4 % (10.5-14.5); WBC 6.9 thou/uL (4.0-11.0)
[2018-09-12 03:39] LABS: CALCIUM 8.8 mg/dL (8.5-10.1); CREATININE 0.8 mg/dL (0.7-1.3); MAGNESIUM 1.8 mg/dL (1.8-2.4); POTASSIUM 4.1 mmol/L (3.5-5.1)
--- NOTE | 2018-09-12 04:17 | NUR ---
A/O, calm and cooperative; patient bed rest, weakness. vss, afebrile. lab reviewed. Will keep monitoring.
[2018-09-12 07:17] VITALS: BP 128/70
[2018-09-12 09:25] VITALS: BP 128/70
--- NOTE | 2018-09-12 10:04 | NUR ---
PATIENT SEEN BY DR. SMITH THIS DATE. PATIENT DOES MEET CRITERIA FOR ACUTE REHAB. WILL CONTINUE TO FOLLOW AND ADMIT TO 5N IF PATIENT AGREEABLE TO PLAN. RAIL TRANSIT OPERATOR INFORMED AND WILL SPEAK WITH PATIENT FOR PATIENT DECISION ON DISCHARGE PLAN. THANK YOU FOR THIS REFERRAL.
[2018-09-12] MEDS ORDERED: IPRAT-ALBUT 0.5-3 ML INH (11:42)
[2018-09-12] MEDS ORDERED: HEPARIN SO5000 UNIT/ SUBQ (11:43)
[2018-09-12] MEDS ORDERED: SOLU-MEDRO40 MG/1 M1 IV PUSH (11:44)
[2018-09-12] MEDS ORDERED: MIRALAX17 GM PO (11:44)
[2018-09-12] MEDS ORDERED: NOVOLOG100 UNIT/1 SUBQ (11:44)
[2018-09-12] MEDS ORDERED: GLUCAGEN1 MG/1 ML IM (11:45)
[2018-09-12] MEDS ORDERED: ZOSYN 3/0.373.375 G3 IVPB (11:46)
--- NOTE | 2018-09-12 17:19 | NUR ---
Received awake on bed. Due medications given as prescribed, meds crushed and mixed with apple sauce. With IV at R FA, L Hand- patent and intact. On room air. A+Ox3-4, pt with flat affect. On blood sugar monitoring, taken and recorded accordingly. Pt assisted in ADLs. Seen by PT/OT today. Able to sit out on chair and walked with walker. Pt seen by Dr Valles, pt may be discharged to 5N, CM aware, rosalie talked to me about the transfer, possible between 3-4pm, will let staff call me so I can give report. Pt visited by relatives today. Vital signs stable. Prior to transfer, noticed pt had purple, web-like rashes on both of his knees- called BRANDIN Butts to assess pt, she called back and said probably due to IVIG, Dr Valles won't be back until an hour so ok to move patient to 5N and will see patient there- Staff Brook from informed re: what Erlinda said. Pt moved to 5N via wheelchair, accompanied by NURSE ASSISTANT; prescription and discharge instructions given.
--- NOTE | 2018-09-22 10:01 | HC ---
[facility] [place] [address] CONSULTATION Name: GEORGIA MCCLAIN Room #: 457-P [facility] IN ..#: [id number] Admission: 09/04/18 ������������������ Attend Phys: Puja Lucero MD Discharge: 09/12/18 ������������������ Date of : 52 Report #: [id number] THIS REPORT FOR: //name// CC: [facility] DATE OF SERVICE: 09/12/2018 HISTORY OF PRESENT ILLNESS: The patient is a 68-year-old white male originally admitted to the Emergency Department from [facility] after he fell backwards on his buttocks apparently standing up from his wheelchair. No loss of consciousness. He was diagnosed with healthcare-associated pneumonia. He has had problems with weakness, had usually been using a cane, but over the last few months he did use a walker and a wheelchair. He was seen by Neurology and ended up undergoing elective diagnostic evaluation with upper extremity demyelinating changes and lower extremity axonal demyelinating changes and he has been diagnosed with CIDP. He has been given IVIG and has now received his last dose. MRI of the cervical spine also showed multilevel cervical spinal stenosis. He does have some pulmonary infiltrates with a right middle lobe infiltrate. CT showing improvement and thus holding on PET and bronchoscopy, which were scheduled through [facility]. He does have a left lower lobe infiltrate, question silent aspiration with antibiotics. He has a prior history of nodular densities in the lungs for which the PET was originally scheduled at as an outpatient. With his functional decline and now recent IVIG for the CIDP, we are consulted regarding rehabilitation issues. PAST MEDICAL HISTORY: As delineated above. He also has a history of schizophrenia, hypertension, hyperlipidemia, diabetes mellitus, hypothyroidism. Also includes a history of COPD and history of right thalamic infarct. MEDICATIONS: Please see the full medication listing. ALLERGIES: No known drug allergies. SOCIAL HISTORY: Lives in an assisted living facility at [facility]. Recently moved on to the level where they can use adaptive devices. He had utilized a cane previously and now is using a front-wheeled walker. There are no steps. He has a sister and [id number] that are involved. REVIEW OF SYSTEMS: No complaints currently of chest pain, shortness of breath, abdominal discomfort. Complains of weakness of his upper and lower extremities and decreased functional abilities with this. PHYSICAL EXAMINATION: [facility] [address] [place] [address] CONSULTATION Name: GEORGIA MCCLAIN Zelalem Room #: 457-P [facility] IN ..#: [id number] Admission: 09/04/18 ������������������ Attend Phys: Puja Lcuero MD Discharge: 09/12/18 ������������������ Date of : 52 Report #: [id number] GENERAL: A 68-year-old thin, white male, in no obvious distress. He is alert. VITAL SIGNS: Last recorded temperature 97.5, pulse 69, respirations 14, blood pressure 128/70. HEENT: Appeared to be benign. NEUROLOGIC: Cranial nerves are grossly intact. Facies are symmetric. Does have some ptosis of that right eye. He has functional range of motion of the upper extremities. Strength is probably a grade 4-/5. Lower extremities functional range of motion strength is grade 3+ to 4-/5. Appears to have some decreased proprioception left large toe. Functionally, he is min assist with sit to stand. Gait was min assist 15 feet x 2 with a front-wheeled walker. ASSESSMENT: A 68-year-old white male with the following problem list: 1. Chronic inflammatory demyelinating polyradiculoneuropathy. Noted to have received last dose of IVIG. 2. Suspected aspiration pneumonia, acute hypoxic respiratory failure. He has been on antibiotics. Speech therapy involved pulmonary assisting. 3. Acute exacerbation of severe chronic obstructive pulmonary disease. 4. Prior history of nodular densities in the lungs. CT noted to show improvement and holding off on PET/bronchoscopy. 5. History of schizophrenia. 6. Diabetes mellitus type 2. 7. Hypertension. 8. Paroxysmal atrial fibrillation. 9. Depression. PLAN: The patient is a candidate for an acute in-hospital inpatient rehabilitation stay. I discussed with him that the physicians may desire for him to have his rehabilitation here within the hospital setting where they can continue to monitor his multiple medical comorbidities. We will follow along with you regarding his rehab therapy needs. ��������������������������������������������� <ELECTRONICALLY SIGNED> ���������������������������������������� By: Oscar Harrell MD ��������������������������������������������� 09/22/18 1001 0927 2217 Oscar Harrell MD /[facility]
== END 2018-09-12 16:39 | DRG 177 ==
LOC: ER 19:02 → 4E 09-04 01:21 → EROBS 09-04 01:21 → 4E 09-04 02:35 → 4W 09-10 18:03
PROVIDERS: Emergency Medicine; Hospitalist; Internal Medicine; Internal Medicine Pulmonary Disease; Nurse Practitioner Acute Care; Psychiatry & Neurology Neurology; ADMIT Internal Medicine
DX: J69.0 Pneumonitis due to inhalation of food and vomit (principal); E43 Unspecified severe protein-calorie malnutrition; J44.1 Chronic obstructive pulmonary disease with (acute) exacerbation; G61.81 Chronic inflammatory demyelinating polyneuritis; I10 Essential (primary) hypertension; E78.5 Hyperlipidemia, unspecified; E03.9 Hypothyroidism, unspecified; N40.0 Benign prostatic hyperplasia without lower urinary tract symptoms; F32.9 Major depressive disorder, single episode, unspecified; F41.9 Anxiety disorder, unspecified; D72.829 Elevated white blood cell count, unspecified; F20.9 Schizophrenia, unspecified; I48.0 Paroxysmal atrial fibrillation; E11.42 Type 2 diabetes mellitus with diabetic polyneuropathy; G72.9 Myopathy, unspecified; G71.8 Other primary disorders of muscles; R91.1 Solitary pulmonary nodule; E53.8 Deficiency of other specified B group vitamins; Z79.82 Long term (current) use of aspirin; Z87.891 Personal history of nicotine dependence; Z68.28 Body mass index [BMI] 28.0-28.9, adult; Z79.899 Other long term (current) drug therapy; Z23 Encounter for immunization
CPT/HCPCS: 10040; 10084

== ENCOUNTER 2018-09-12 13:42 | Inpatient (IN) | payer OTHER, BC ==
[~2018-09-12] VITALS: Ht 175.3 cm; Wt 76.3 kg
--- NOTE | ~2018-09-12 | PLAN ---
[facility] [place] [address] REHAB UNIT PLAN OF CARE Name: GEORGIA MCCLAIN Room #: 511-P ADM IN M.R.#: [id number] Admission: 09/12/18 ������������������ Attend Phys: Oscar Harrell MD Discharge: ������������������ Date of : 51 Report #: [id number] THIS REPORT FOR: //name// CC: Oscar Powell DATE OF SERVICE: 09/15/2018 PROGRESS NOTE/OVERALL PLAN OF CARE SUBJECTIVE: The patient is seen back today in followup. He is in no distress. Last recorded temperature 97.4, pulse 89, respirations 18, blood pressure 144/74. The patient is alert. Transfers are min assist. Gait mod assist 50 feet front-wheeled walker. Lower body dressing is dependent. In speech, he does have moderate comprehensive deficits and he is on a mechanical soft diet, nectar thick, although the therapists have also been utilizing honey thick. ASSESSMENT: 1. CIDP. 2. Suspected aspiration pneumonia. 3. Acute hypoxic respiratory failure. 4. Dysphagia. 5. Exacerbation of chronic obstructive pulmonary disease. 6. Prior history of nodular densities in the lung. Holding off on PET scan. Bronchoscopy as his CT scan and was noted to show improvement. 7. History of schizophrenia. 8. Diabetes mellitus type 2. 9. Hypertension. 10. Paroxysmal atrial fibrillation. 11. Depression. PLAN: The overall plan of care is based on the preadmission screen, post-admission physician evaluation and information garnered from therapy assessments. 1. Estimated length of stay is probably the next 3 weeks or so depending upon how he does. 2. Medical prognosis is reasonably good. 3. Anticipated interventions includes the interdisciplinary acute inpatient rehabilitation program with goal of maximizing his functional independence, he can hopefully return back to his prior living situation. 4. Anticipated functional outcomes would be for the patient to become modified independent with transfers, mobility, ADLs and improved swallowing and cognition, so he can be return back to his assisted living. 5. Discharge destination would be back to his assisted living. 6. Expected therapy by discipline includes PT, OT and speech 1 hour per day [address] [address] REHAB UNIT PLAN OF CARE Name: GEORGIA MCCLAIN Room #: 511-P [facility] IN ..#: [id number] Admission: 09/12/18 ������������������ Attend Phys: Oscar Harrell MD Discharge: ������������������ Date of : 51 Report #: [id number] each five days a week throughout the duration of the acute inpatient rehabilitation stay. ��������������������������������������������� ���������������������������������������� By: ��������������������������������������������� 0822 1308 Oscar Hrarell MD /[facility]
--- NOTE | ~2018-09-12 | H ---
[facility] [place] [address] HISTORY AND PHYSICAL Name: GEORGIA MCCLAIN Room #: 511-P ADM IN M.R.#: [id number] Admission: 09/12/18 ������������������ Attend Phys: Oscar Harrell MD Discharge: ������������������ Date of : 51 Report #: [id number] THIS REPORT FOR: //name// CC: Oscar Powell DATE OF SERVICE: 09/12/2018 HISTORY AND PHYSICAL AND POST-ADMISSION PHYSICIAN EVALUATION HISTORY OF PRESENT ILLNESS: The patient is a 68-year-old white male admitted through the Emergency Department after he fell backwards on his buttocks apparently standing up from his wheelchair. No loss of consciousness. He was diagnosed with healthcare-associated pneumonia. He also had problems with weakness and usually been using a cane, but over the last few months he used a walker and subsequently a wheelchair. He was seen by Neurology and ended up undergoing electrodiagnostic evaluation with upper extremity demyelinating changes and lower extremity axonal demyelinating changes and he has been diagnosed with CIDP. He was also given IVIG and has received his last dose. MRI of the cervical spine showed multilevel cervical spinal stenosis. He does have some pulmonary infiltrates with a right middle lobe infiltrate. CT scan showed improvement and the plan is thus to hold on PET scan and bronchoscopy with some prior noted nodular densities. This had been scheduled through [facility]. He does have a left lower lobe infiltrate, question silent aspiration with antibiotics. The patient has had an overall functional decline with his polyneuropathy/polyradiculoneuropathy. The patient has been admitted for acute in-hospital inpatient rehabilitation. PAST MEDICAL HISTORY: As delineated above. He also has a history of schizophrenia, hypertension, hyperlipidemia, diabetes mellitus and hypothyroidism. He has a history of COPD and history of the right thalamic infarct. MEDICATIONS: Please see the full medication listing. ALLERGIES: No known drug allergies. SOCIAL HISTORY: Lives in an assisted living facility at [facility]. Recently moved to a level where they can use adaptive devices. He has utilized a cane previously and is not using a front-wheeled walker. There are no steps. There is a sister and [id number]-[id number] that are involved. REVIEW OF SYSTEMS: No current complaints of chest pain, shortness of breath or abdominal discomfort. PHYSICAL EXAMINATION: [address] [address] HISTORY AND PHYSICAL Name: GEORGIA MCCLAIN Room #: 511-P [facility] IN [facility].#: [id number] Admission: 09/12/18 ������������������ Attend Phys: Oscar Harrell MD Discharge: ������������������ Date of : 51 Report #: [id number] GENERAL: A 68-year-old thin white male in no obvious distress. The patient is alert. VITAL SIGNS: Last recorded temperature 97.6, pulse 74, respirations 18, blood pressure 125/62. HEENT: Appeared to be benign. Cranial nerves are grossly intact except he does have some ptosis of the right eye. CHEST: Sounded reasonably clear. CARDIOVASCULAR: Regular rate and rhythm. ABDOMEN: Bowel sounds positive, nontender. GENITOURINARY AND RECTAL: Deferred. EXTREMITIES: Upper extremity strength is probably a grade 4-/5. Lower extremities, functional range of motion with strength of grade 3+ to 4-/5. He does have some decreased proprioception, left large toe. He is min assist with sit to stand and gait was min assist short distances with a front-wheeled walker. ASSESSMENT: A 68-year-old white male with the following problem list: 1. Chronic inflammatory demyelinating polyradiculoneuropathy. He has received his last dose of IVIG. 2. Suspected aspiration pneumonia. 3. Acute hypoxic respiratory failure. 4. Exacerbation of chronic obstructive pulmonary disease. 5. Prior history of nodular densities in the lungs. CT noted to show improvement and thus holding off on PET scan/bronchoscopy which was previously scheduled as per [facility]. 6. History of schizophrenia. 7. Diabetes mellitus type 2. 8. Hypertension. 9. Paroxysmal atrial fibrillation. 10. Depression. PLAN: The patient is admitted for acute in-hospital inpatient rehabilitation. From a postadmission physician evaluation perspective, there are no relevant changes since the preadmission screening. Please see the above review of prior and current medical and functional conditions and comorbidities. Please see the patient's previous and current functional status. As far as risk of complications, the patient has multiple medical comorbidities as noted above. Initial plan of care involves the interdisciplinary acute inpatient rehabilitation program with goal of maximizing his functional independence, so he can hopefully return back to his prior living situation. Measurable functional goals would be for the patient to become modified independent with transfers, mobility, ADLs, so he can return back to the home setting. Speech therapy is also following regarding swallowing issues. Prognosis is reasonably good with estimated length of stay probably 3 weeks. He does have a diagnosis of dysphagia as well with recommendations for nectar thickened liquid diet. Potential barriers would include his multiple medical comorbidities and [facility] [address] [place] [address] HISTORY AND PHYSICAL Name: GEORGIA MCCLAIN Room #: 511-P ADM IN M.R.#: [id number] Admission: 09/12/18 ������������������ Attend Phys: Oscar Harrell MD Discharge: ������������������ Date of : 51 Report #: [id number] decreased functional status. The patient meets diagnostic criteria for an acute in-hospital inpatient rehabilitation stay. He meets the medical necessity criteria and we will have the consult physicians continue to follow. He does have the tolerance for therapies and has appropriate discharge goals back to the home setting. ��������������������������������������������� ���������������������������������������� By: ��������������������������������������������� 0950 1126 Oscar Harrell MD /[facility]
--- NOTE | ~2018-09-12 | D ---
[place] [address] DISCHARGE SUMMARY Name: GEORGIA MCCLAIN [place] Room #: 511-P [facility] IN .R.#: [id number] Admission: 09/12/18 ������������������ Attend Phys: Oscar Harrell MD Discharge: 09/17/18 ������������������ Date of : 51 Report #: [id number] THIS REPORT FOR: //name// CC: [facility] DATE OF SERVICE: 09/17/2018 HISTORY OF PRESENT ILLNESS: The patient was admitted with CIDP, suspected aspiration pneumonia, recent respiratory failure, dysphagia, exacerbation of chronic obstructive pulmonary disease. He was progressing in rehabilitation therapies with transfers, min assist. Gait mod assist 50 feet with a front-wheeled walker. Lower extremity dressing was dependent. He was noted to have moderate comprehensive deficits and was on mechanical soft diet, nectar thickened liquids. He was having problems with increasing lethargy and decreased p.o. intake and was noted to have decreased responsiveness with a rapid response team. He was felt to be medically unstable and was transferred back to the acute Med/Surg galicia. Please see the hospitalist notes. DISCHARGE DIAGNOSES: 1. CIDP. 2. Suspected aspiration pneumonia. 3. Acute hypoxic respiratory failure. 4. Dysphagia. 5. Exacerbation of chronic obstructive pulmonary disease. 6. Prior history of nodular densities in the lung. Holding off on PET scan and bronchoscopy as his CT scan had showed slow improvement. 7. History of schizophrenia. 8. Diabetes mellitus type 2. 9. Hypertension. 10. Paroxysmal atrial fibrillation. 11. Depression. PLAN: The patient is readmitted back to the acute care hospital. Defer further orders/activity level, etc. as per the hospitalist team. ��������������������������������������������� ���������������������������������������� By: ��������������������������������������������� 1630 1647 Oscar Harrell MD /[facility]
--- NOTE | ~2018-09-12 | HC ---
[facility] [place] [address] CONSULTATION Name: GEORGIA MCCLAIN Room #: 511-P [facility] IN M.R.#: [id number] Admission: 09/12/18 ������������������ Attend Phys: Oscar Harrell MD Discharge: ������������������ Date of : 51 Report #: [id number] THIS REPORT FOR: //name// CC: Oscar Joyh Sherry DATE OF SERVICE: 09/16/2018 NEUROBEHAVIORAL STATUS EXAM ATTENDING PHYSICIAN: Oscar Harrell MD. CLINICAL PRESENTATION: The patient is a 68-year-old white male admitted to the [facility] Rehab Unit for comprehensive inpatient rehabilitation program to improve functional mobility, activities of daily living and self-care and mental status secondary to deficits associated with a chronic inflammatory demyelinating polyradiculoneuropathy. He initially presented through the Emergency Room with suspected aspiration pneumonia and acute hypoxic respiratory failure. The assessment includes an exacerbation of COPD, history of nodular densities in the lungs, history of schizophrenia, diabetes mellitus type 2, hypertension, paroxysmal atrial fibrillation and depression. A complete description of his medical condition and history can be found in his medical record. Neuropsychological consultation was requested to provide assistance in the assessment of cognitive and emotional status and to provide recommendations and services. Prior to this most recent admission, the patient is reported to have been living in an assisted living facility. He reports having problems with falling. This most recent hospitalization, he indicates is a result of a fall in which he struck his head. As indicated, the patient was in an assisted living and facility do assist him in the management of medications, finances and nutrition. 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 He indicates that he has never and has no children. He describes his history of mental illness in terms of bipolar disorder and depression that began in the 1970s following the end of a relationship. TECHNIQUES UTILIZED: Clinical interview, review of medical records, staff consultation and behavioral observation, mini mental status exam 2 standard version, clock drawing, letter fluency assessment, category fluency assessment and brief abstract reasoning assessment. EXAMINATION FINDINGS: The patient was alert and cooperative with the assessment. He had difficulty in describing events surrounding his hospitalization. He reports having hit his head, but had poor recall of his [facility] [address] [place] [address] CONSULTATION Name: GEORGIA MCCLAIN Room #: 511-P [facility] IN ..#: [id number] Admission: 09/12/18 ������������������ Attend Phys: Oscar Harrell MD Discharge: ������������������ Date of : 51 Report #: [id number] living arrangement. His verbal fluency was slow at a reduced rate. Volume is very soft spoken. He does not report impairment or difficulty with sleep, word finding, or changes in mood, anxiety or depression. He states that his memory has been inconsistent. The patient reports having never and had been having no children. However, he was somewhat vague about his mental health history. Decreased appetite and memory deficits are his primary complaints. His gait is also a concern. His performance on the MMSE 2 brief version was less than 1% with a raw score of 12, T score of 24. He was 3/3 for initial registration, 5/5 for orientation to time, 3/[address] and 1/3 for immediate recall of 3 items after a brief time delay and distraction. MMSE 2 standard version was 21/30, which is a T score of 21 and percentile rank of less than 1. He was 2/5 for serial sevens, 2/2 for naming, 1/1 for repetition, 3/3 for comprehension. He could read and follow single command. The patient was unable to write a sentence or copy a simple geometric design. As indicated, performance was extremely low with a T score of 21, percentile rank of less than 1. Letter fluency was extremely low with a raw score of 7, T score 19, percentile rank of less than 1. Animal fluency was less than 1% with a raw score of 8 and a T score of 23. He was 2/8 on an abstract reasoning test suggesting impaired reasoning. The patient was unable to accurately set the hands of a clock at a designated time. The patient is presenting with oeyrkqgb-us-eeobyw deficits in cognitive functioning. He is alert and oriented, but experiencing deficits in abstract conceptual ability, immediate memory and visual spatial construction. He has decreased insight into the extent of his cognitive deficits. He does not report auditory or visual hallucinations. Describes his mood as stable. DIAGNOSTIC IMPRESSION: 1. Bipolar disorder with psychotic features -- stable at this time. 2. Schizophrenia reported by history. 3. Major neurocognitive disorder (dementia), unspecified -- without behavior disorder -- extent to be determined, likely moderate to severe. RECOMMENDATIONS: The patient appears to be taking Depakote, which is often used in the treatment of bipolar disorder. Continued psychiatric management and medication for mood and behavior is indicated. He will require continued assistance in the management of instrumental activities of daily living. Decreased insight places him at an increased safety risk. Consider speech [facility] [address] [place] [address] CONSULTATION Name: GEORGIA MCCLAIN Room #: 511-P ADM IN ..#: [id number] Admission: 09/12/18 ������������������ Attend Phys: Oscar Harrell MD Discharge: ������������������ Date of : 51 Report #: [id number] therapy to assist with the development of compensatory strategies for cognitive deficits and clear and consistent rehabilitation program with guidelines instructed that include expectations as well as strategies that can be used and generalized to his current placement. Thank you very much for allowing me to provide the consultation on this patient. ��������������������������������������������� ���������������������������������������� By: ��������������������������������������������� 1713 0220 Bhavin Rodriguez, PhD /nt
[~2018-09-12 13:42] MED LIST changes: +GLUCAGEN1 MG/1 ML IM; +HEPARIN SO5000 UNIT/ SUBQ; +MILK OF MA400 MG/5 M PO; +MIRALAX17 GM PO; +NOVOLOG100 UNIT/1 SUBQ; +SOLU-MEDRO40 MG/1 M1 IV PUSH; +TRELEGY ELLIPT1 EACH; +ZOSYN 3/0.373.375 G3 IVPB
[2018-09-12 16:45] VITALS: BP 131/66
--- NOTE | 2018-09-12 17:52 | NUR ---
PT ARRIVED AT 1630 FROM 4W. VITALS REMAIN STABLE. DENIES PAIN. LS CLEAR/DIMINISHED, NO COUGH NOTED. HS STABLE S1S2, PERIPHERAL PULSES 2+/2+, NO EDEMA. BS ACTIVE, LAST REPORTED BM THIS AM PER PATIENT, HARD "4 BALLS". PT HAS ABRASIONS IN KNEES AND LEGS, RED SPOT AROUND THE COCCYX. 2 PIV, RIGHT HAND AND LEFT FOREARM, PATENT AND INTACT. IV ZOSYN RUNNING AT 25ML/HR ON LEFT FOREARM IV. PT UP WITH MIN ASSIST PIVOT TRANSFERS. MEDS CRUSHED IN APPLESAUCE. REMAINS ON MECHANICAL CHOPPED DIET AND NECTAR THICK FLUIDS. Q1H VISUAL CHECKS. CALL LIGHT WITHIN REACH. FALL PRECAUTIONS IN PLACE
[2018-09-12 19:15] VITALS: BP 125/62
--- NOTE | 2018-09-13 02:20 | NUR ---
PATIENT APPRECIATES NECTAR THICK APPLE JUICE WITH MEDS. USING URINAL AT NIGHT, JUDSON URINE HAS A LIGHT PINK TINT TO IT. EYEDROPS IN REFRIDGERATOR
[2018-09-13 07:08] LABS: HEMATOCRIT 27.8 % (42.0-52.0); HEMOGLOBIN 9.6 gm/dL (14.0-18.0); MCH 30.7 pg (26.0-34.0); MCHC 34.4 g/dL (28.0-37.0); MCV 89.1 fL (80.0-100.0); RBC 3.12 mil/uL (4.50-6.00); RDW 16.9 % (10.5-14.5); WBC 11.6 thou/uL (4.0-11.0)
[2018-09-13 07:23] LABS: CREATININE 0.8 mg/dL (0.7-1.3); POTASSIUM 4.1 mmol/L (3.5-5.1)
[2018-09-13 07:55] VITALS: BP 111/51
[2018-09-13 09:30] VITALS: BP 118/68
--- NOTE | 2018-09-13 14:32 | NUR ---
Patient participated in community reintegration on 09/13/18 with PHYSICAL THERAPY. Refer to documentation by RUPALI PHYSICAL THERAPIST.
--- NOTE | 2018-09-13 14:37 | NUR ---
chart review, spoke with bedside nurse. pt is out of room and with group therapy. per chart "[facility] [place] [facility], has wheel chair, walker, bath chair, has had hh in past and sister adithya is his contacted. cm called spoke with sister, no complaints voiced. thank you will talk after team meeting, do the doctors know what is causing his myopathy?"/adithya. education that question will be passed on to bedside nurse to have physician discuss with sister. " ok thank you for calling, going to come and visit next week"/sister.
--- NOTE | 2018-09-13 15:27 | NUR ---
ASSUMED CARES AT 0700. PT ALERT AND ORIENTED*3, VERY DROWSY AND LETHARGIC THIS AM. VITALS REMAINED STABLE. DENIES PAIN. DENIES DIZZINESS. CONTINUES TO HAVE ABRASIONS ON BLE (KNEES), CLEANED AND LEFT KAMILA. URINE IS JUDSON TO ORANGE, CLEAR WITH NO FOUL ODOR. HOSPITALIST NOTIFIED AND ORDERS RECEIVED. PT UP WITH 1 MIN ASSIST PIVOT TRANSFERS, NEEDS TIME AND CUES WHILE TRANSFERING. SOME BLADDER INCONTINENCE NOTED. DUCOLAX SUPPOSITORY ADMINISTERED R/T CONSTIPATION, LAST REPORTED BM 09/12 (4 SMALL HARD BALLS). Q1H VISUAL CHECKS. CALL LIGHT WITHIN REACH. FALL PRECAUTIONS IN PLACE
[2018-09-13 20:18] VITALS: BP 126/62
--- NOTE | 2018-09-14 05:51 | NUR ---
PATIENT ALERT AND ORIENTED X4. DENIES PAIN. SLEPT MOST OF NIGHT.
[2018-09-14 07:36] VITALS: BP 119/57
--- NOTE | 2018-09-14 08:03 | NUR ---
ASSUMED CARE AT 0700. PATIENT IS ALERT AND ORIENTED X4. MILK ROUTE DELIVERER ARE EQAUL AND WOODARD'S. LUNGS ARE COARSE AND DEMINISHED. ABD IS SOFT WITH BSX4. PATIENT IS UP WITH WALKER AND GAIT BELT AND ASSIST OF 1 STAFF. FALL AND SAFETY PROTOCOLS IN PLACE. DENIES ANY PAIN AT THIS TIME. CONTINUES TO PROGRESS SLOWLY TOWARDS D/C GOALS. PATIENT HAS 2 IV SITES. S.L. IN HIS LEFT FORARM IS WITHOUT REDNESS OR SWELLING. S.L. IN THE RIGHT ARM IS PATIENT AND INTACT. PATIENT CONTINUES ON RESPIRATORY TX AND ABT FOR ASPIRATION PNEUMONIA. PATIENT IS TOLERATING HIS IV ABT WITHOUT ADVERSE REACTIONS. WILL CONTINUE TO MONITER.
[2018-09-14 19:02] VITALS: BP 123/47
[2018-09-14 22:00] VITALS: BP 117/65
--- NOTE | 2018-09-15 00:20 | NUR ---
PT ASSESSMENT COMPLETED AND VSS. MEDS GIVEN ORDERED AND WELL TOLERATED. FALL PRECAUTIONS IN PLACE. URINAL AT BEDSIDE. TURN Q 2 HOURS. BARRIER CREAM APPLIED TO COCCYX. PT HAD A VERY HARD TIME SWALLOWING PILLS THIS EVENING WITH HIS APPLESAUSE. WILL INFORM DAY RN SINCE SEVERAL OF HIS LARGE PILLS CANNOT BE CRUSHED. SLEEPING WELL. WILL CONTINUE TO MONITOR FREQUENTLY.
[2018-09-15 06:12] LABS: ABSOLUTE NEUTROPHILS 7.5 thou/uL (1.4-8.2); BASOPHILS 0.1 % (0.0-2.0); HEMOGLOBIN 9.2 gm/dL (14.0-18.0); LYMPHOCYTES 21.7 % (24.0-44.0); MCH 31.5 pg (26.0-34.0); MCHC 34.2 g/dL (28.0-37.0); MCV 92.1 fL (80.0-100.0); MONOCYTES 9.4 % (1.0-8.0); PLATELET COUNT 266 thou/uL (150-400); POLYS 68.8 % (36.0-66.0); RBC 2.93 mil/uL (4.50-6.00); RDW 17.7 % (10.5-14.5); WBC 10.9 thou/uL (4.0-11.0)
[2018-09-15 06:26] LABS: CREATININE 0.8 mg/dL (0.7-1.3); POTASSIUM 3.9 mmol/L (3.5-5.1)
[2018-09-15 06:27] LABS: CALCIUM 8.9 mg/dL (8.5-10.1)
[2018-09-15 07:52] VITALS: BP 144/74
[2018-09-15 18:02] VITALS: BP 144/70
--- NOTE | 2018-09-15 18:31 | NUR ---
ASSUMED CARE OF PT AT 0715. PT IS ALERT AND ORIENTED TO PERSON AND PLACE. VITAL SIGNS ARE STABLE. PT IS ON HONEY THICK LIQUIDS AND PER SPEECH THERAPY NEEDS MEDICAITONS CRUSHED AND IN PUDDING FOR SAFETY. CALL MADE TO NEUROLOGY D/T CONCERNS ABOUT DELINE IN SWALLOWING AND MOVEMENT. PT DID NOT REPORT ANY PAIN THIS SHIFT. FALL PRECAUTIONS IN PLACE AND NURSING WILL CONTINUE TO MONITOR.
[2018-09-15 20:00] VITALS: BP 134/67
--- NOTE | 2018-09-16 03:24 | NUR ---
assumed care at approx 1900 evening 09/15. pt lying in bed with head of bed elevated sleeping off and on, pt with flat affect, lethargic. vss. pt assist up to bsc to void. pt given hs meds with applesauce tolerating well. pt appears to be sleeping soundly with hourly rounding. bed alarm on and call light in reach. will continue to monitor.
[2018-09-16 08:00] VITALS: BP 130/63
--- NOTE | 2018-09-16 16:27 | NUR ---
ASSUMED CARE OF PT AT 0715. PT IS ALERT AND ORIENTED TO PERSON, VITAL SIGNS ARE STABLE. ACCU CHECKS BID AND MANAGED WITH PO MEDICAITONS. HONEY THICK LIQUIDS AND MEDICAITONS CRUSHED WHEN POSSIBLE AND GIVEN IN APPLESAUCE OR PUDDING. PATIENT DENIED PAIN AND PARTICIPATED IN SCHEDULED THERAPIES. FALL PRECAUTIONS IN PLACE AND NURSING WILL CONTINUE TO MONITOR.
[2018-09-16 19:30] VITALS: BP 130/32
--- NOTE | 2018-09-17 00:35 | NUR ---
PT ASSESSMENT COMPLETED AND VSS. PT HAVING TROUBLE SWALLING THIS EVENING. CONTACTED [employer] BIOLOGIST TONIGHT REGARDING DEPAKOTE PILLS. DEPAKOTE IS NOT ABLE TO BE CRUSHED AND PT HAS TO HAVE HIS PILLS CRUSHED. [employer] BIOLOGIST SAID TO HOLD DOSE AND HAVE DR ADDRESS TOMORROW. SLEEPING WELL. REPOSITIONING Q 2 HOURS. WILL CONTINUE TO MONITOR FREQUENTLY.
[2018-09-17 08:00] VITALS: BP 141/57
[2018-09-17 15:44] LABS: HEMATOCRIT 29.6 % (42.0-52.0); HEMOGLOBIN 9.8 gm/dL (14.0-18.0); MCH 32.3 pg (26.0-34.0); MCHC 33.1 g/dL (28.0-37.0); PLATELET COUNT 269 thou/uL (150-400); RBC 3.03 mil/uL (4.50-6.00); RDW 25.2 % (10.5-14.5); WBC 21.4 thou/uL (4.0-11.0)
[2018-09-17 15:48] LABS: MCV 97.5 fL (80.0-100.0)
[2018-09-17 16:00] LABS: ALBUMIN 2.9 g/dL (3.4-5.0); APTT 21.5 Seconds (24.5-32.8); CALCIUM 9.1 mg/dL (8.5-10.1); CREATININE 0.8 mg/dL (0.7-1.3); INR 1.2; POTASSIUM 3.3 mmol/L (3.5-5.1); PROTIME 12.3 Seconds (9.3-11.4); TOTAL BILIRUBIN 2.8 mg/dL (<0.1-1.0); TOTAL PROTEIN 8.1 g/dL (6.4-8.2)
--- NOTE | 2018-09-17 17:58 | NUR ---
RN spoke with Dr. Miller about update on pt stauts as requested post rapid response initiation. patient will be transfered to medical unit.
[2018-09-17 18:19] LABS: ANISOCYTOSIS 2+; MACROCYTES 1+
[2018-09-17 18:20] LABS: MICROCYTES 1+; POLYCHROMASIA 1+
--- NOTE | 2018-09-17 21:29 | NUR ---
ASSUMED CARE OF PT AT 0715. PT A&OX1 AND LETHARGIC, VITAL SIGNS STABLE. PT UNABLE TO SWALLOW MEDICATIONS AT BREAKFAST WHICH WERE CRUSHED AND PUT IN APPLESAUCE PER ST ORDERS AND UNABLE TO SWALLOW FOOD OR HONEY THICK FLUIDS THIS SHIFT. PT UNABLE TO MAINTAIN UPRIGHT POSITION WHEN SITTING OR TRANSFERING. DR. WILLAMS NOTIFIED ABOUT PATIENT STATUS AND ASKED NURSING TO CONSULT WITH NEUROLOGY. DR. WANG TALKED TO NURSE IN PERSON AFTER SEEING PATIENT STATING THAT THE PATIENT WOULD LIKELY NEED TO BE TRANSFERED TO MEDICAL UNIT AND HAVE TUBE FEEDINGS INITIATED FOR POOR INTAKE SINCE ADMIT TO THE UNIT AND WOULD NEED TRANSFER TO [facility] FOR FURTHER TESTING. DR. WANG STATED THAT DR. WILLAMS WOULD NEED TO GIVE ORDER FOR TRANSFER TO MEDICAL UNIT. FAMILY VISITED FOLLOWING LUNCH AND PATIENT WAS THEN PUT IN BED BY NURSING WHEN HE WAS NOTED TO BE WEAKER THAN EARLIER NOTED AND EYES FIXED TO THE RIGHT SIDE AND HAVING MINIMAL OCCULAR MOVEMENT. DR. WILLAMS WAS THEN PAGED BY NURSING AND CAME TO ASSESS THE PATIENT AND ORDERED LAB WORK. DR. WILLAMS WAS NOTIFIED AT THAT TIME THAT THE PATIENT HAD NOT HAD URINE OUTPUT IN SIX HOURS WITH BLADDER SCAN READING OF 150ML. LAB WORK SHOWED SIGNIFICANT CHANGES FROM PREVIOUS LABS AND NURSING RETURNED TO THE ROOM TO CHECK PT STATUS WHEN PT TOLD THIS NURSE "I CAN'T SEE". RAPID RESPONSE CALLED AT THAT TIME [facility] STROKE SCORE OF 13, SEPSIS SCREAN POSITIVE, STAT EKG PERFORMED, IV INITIATED IN RIGHT AC, STAT CHEST X-RAY PERFORMED, AND DR. WANG CONSULTED AGAIN. PT STATED ON IV FLUIDS, IV ANTIBIOTICS, IV POTASSIUM. DR. WILLAMS GAVE ORDERS FOR TRANSFER TO MEDICAL UNIT WITH ALL ORDERS TO BE CONTINUED AND CONSULTS FOR DR. SMITH AND DR. TAPIA ON MEDICAL UNIT. PT TRANSFERED TO CCU, REPORT CALLED TO [facility]TAZ[facility] VILLARREAL AND NURSING TRANSFERED PT TO CCU AT 1999.
--- NOTE | 2018-09-18 08:18 | EKG ---
[address] [address] ELECTROCARDIOGRAM REPORT Name: JOHNYGEORGIA Zelalem Room #: 511-[facility] IN M..#: [id number] ������������������ Admission: 09/12/18 ������������������ Attend Phys: Oscar Harrell MD Discharge: 09/17/18 ������������������ Date of : 52 Report #: [id number] ����������������������������������������������������������������� [id number] THIS REPORT FOR: //name// [facility] Test Date: 2018-09-17 Test Time: 16:29:30 Pat Name: GEORGIA MCCLAIN Department: Room: 511 Gender: M Supervisor [employer]: LACY : 1950 Requested By: Oscar Harrell Order Number: [id number] MD: Osei Augustine Measurements Intervals [place] Rate: 110 P: 35 [place]: 143 QRS: 32 QRSD: 72 T: 40 QT: 309 QTc: 419 Interpretive Statements Sinus tachycardia Minimal ST depression, lateral leads Compared to ECG 09/03/2018 19:37:24 ST (T wave) deviation now present Sinus rhythm no longer present Electronically Signed On 09-18-2018 8:18:24 CDT by Osei Augustine [email or web address] ��������������������������������������������� <ELECTRONICALLY SIGNED> ���������������������������������������� By: Osei Augustine MD ��������������������������������������������� 09/18/18 0818 1629 1629 Osei Augustine MD /EPI
[2018-09-18 10:05] LABS: IgA 245 mg/dL (61-437); IgG 2788 mg/dL (700-1600); IgM 308 mg/dL (20-172)
== END 2018-09-17 20:45 | disposition short-term general hospital (02) | DRG 73 ==
PROVIDERS: Nurse Practitioner; Psychiatry & Neurology Neuromuscular Medicine; ADMIT Physical Medicine & Rehabilitation
DX: G61.81 Chronic inflammatory demyelinating polyneuritis (principal); E11.00 Type 2 diabetes mellitus with hyperosmolarity without nonketotic hyperglycemic-hyperosmolar coma (NKHHC); J96.01 Acute respiratory failure with hypoxia; J69.0 Pneumonitis due to inhalation of food and vomit; J44.1 Chronic obstructive pulmonary disease with (acute) exacerbation; I10 Essential (primary) hypertension; F20.9 Schizophrenia, unspecified; E78.5 Hyperlipidemia, unspecified; E11.9 Type 2 diabetes mellitus without complications; E03.9 Hypothyroidism, unspecified; J44.9 Chronic obstructive pulmonary disease, unspecified; I48.0 Paroxysmal atrial fibrillation; R53.81 Other malaise; R29.6 Repeated falls; R31.9 Hematuria, unspecified; F31.9 Bipolar disorder, unspecified; E86.0 Dehydration; N40.0 Benign prostatic hyperplasia without lower urinary tract symptoms; F41.9 Anxiety disorder, unspecified; Z79.84 Long term (current) use of oral hypoglycemic drugs
CPT/HCPCS: 10112

== ENCOUNTER 2018-09-26 13:40 | Inpatient (IN) | payer OTHER, BC ==
[~2018-09-26] VITALS: Ht 175.3 cm; Wt 76.9 kg
--- NOTE | ~2018-09-26 | PLAN ---
[place] [address] REHAB UNIT PLAN OF CARE Name: GEORGIA MCCLAIN Room #: 509-P [facility] IN .R.#: [id number] Admission: 09/26/18 ������������������ Attend Phys: Oscar Harrell MD Discharge: ������������������ Date of : 52 Report #: [id number] THIS REPORT FOR: //name// CC: Oscar Powell DATE OF SERVICE: 09/29/2018 The patient is seen back today in followup. He was in no distress. Last recorded temperature 97.2, pulse 59, respirations 16, blood pressure 95/56. He did have some hypotension yesterday and was given some IV fluids. He has been working in the therapy program with physical therapy working with him. Transfers are min assist. He did ambulate 15 feet with a front-wheeled walker, although that was when he was having problems with his blood pressure. He has walked up to 200 feet with a front-wheeled walker with min assist. In occupational therapy, he is needing supervision for lower body dressing. ASSESSMENT: 1. 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 2. Debilitation secondary to recent hospitalization for aspiration pneumonia, recurrent falls, etc. 3. Electrolyte abnormalities with hypernatremia. 4. Dysphagia. 5. Aspiration pneumonia. 6. Paroxysmal atrial fibrillation. 7. Chronic obstructive pulmonary disease. 8. Diabetes mellitus type 2. 9. Hypothyroidism. 10. Benign prostate hypertrophy. 11. Hypertension. 12. Schizophrenia with anxiety and depression. PLAN: Appreciate Dr. Marroquin's thorough Neurology note in followup. The overall plan of care is based on the preadmission screen, post-admission physician evaluation and information garnered from therapy assessments. 1. Estimated length of stay is probably 10 days to 2 weeks pending progress. 2. Medical prognosis is reasonably good. 3. Anticipated interventions include the interdisciplinary acute inpatient rehabilitation program. 4. Anticipated functional outcomes would be for the patient to become modified independent with transfers, mobility and ADLs that he can hopefully return back to his prior living situation. Also to improve as far as swallowing issues. He is still on nectar thickened liquids. 5. Discharge destination would be back to the home setting where he lives in an assisted living facility. 6. Expected therapy by discipline includes PT, OT and speech 1 [place] [address] REHAB UNIT PLAN OF CARE Name: GEORGIA MCCLAIN Room #: 509-P [facility] IN [facility].#: [id number] Admission: 09/26/18 ������������������ Attend Phys: Oscar Harrell MD Discharge: ������������������ Date of : 52 Report #: [id number] each five days a week throughout the duration of the acute inpatient rehabilitation stay. ��������������������������������������������� ���������������������������������������� By: ��������������������������������������������� 1242 0058 Oscar Harrell MD /nt
[~2018-09-26 13:40] MED LIST changes: +DIVALPROEX SOD500 M1 PO; +METOPROLOL SUCC25 M1 PO; +REMERON15 MG PO; +TAMBOCOR 100 M100 M1 PO
--- NOTE | 2018-09-26 21:16 | NUR ---
ASSUMED CARE AT APPROX 1700. PATIENT A/O X4. DENIES PAIN. VSS. UP X1 ASSIST PIVOT TRANSFER. OUT TO TABLES FOR DINNERTIME MEAL IN WHEELCHAIR PROVIDED BY THERAPIST. FALL PRECAUTIONS IN PLACE. CONSENTS SIGNED. MEDS FAXED TO PHARMACY. ADMISSION ORDERS RECEIVED. ADMISSION ASSESSMENT COMPLETED. PATIENT SETTLED TO ROOM. RESTING IN BED AT CHANGE OF SHIFT. NOTE: PATIENT REQUESTS PCP BE CHANGED TO DR. CAMPOS IN RECORD, HAS BEEN SEEING HIM FOR PRIMARY CARE.
--- NOTE | 2018-09-27 00:58 | NUR ---
PT ADMITTED TO 5N THIS EVENING. VSS. MEDS GIVEN ORDERED AND WELL TOLERATED. VOIDING PER URINAL AND INC AT TIMES. ASST WITH REPOSITION FOR COMFORT. PT DENIES NEEDS. SLEEPING WELL. WILL CONTINUE TO MONITOR FREQUENTLY.
[2018-09-27 05:29] LABS: HEMATOCRIT 27.1 % (42.0-52.0); HEMOGLOBIN 9.2 gm/dL (14.0-18.0); MCH 34.5 pg (26.0-34.0); MCV 101.5 fL (80.0-100.0); RBC 2.68 mil/uL (4.50-6.00); RDW 25.3 % (10.5-14.5); WBC 4.9 thou/uL (4.0-11.0)
[2018-09-27 05:49] LABS: CREATININE 0.6 mg/dL (0.7-1.3)
[2018-09-27 07:15] VITALS: BP 102/52
--- NOTE | 2018-09-27 15:30 | NUR ---
cm visited with pt at bedside, intro to cm, dcp, team meeting and transition of care. [facility], have walker, shower chair, grab bars, has meals there. would like walker with seat so i can go do the salad bar there and get the food. trying soft food now and thicken liquid. yes had home health. sister and niece are my contacts and dpoas."/case. pt stated " would like to use wheel chair at dinner it easy on back side and hard to ear when someone is hacking up phlegm around when eating. cm let him know would pass on concerns. cm passed on to 5n bedside staff.
--- NOTE | 2018-09-27 18:35 | NUR ---
ASSUMED CARE OF PT AT 0715. PT IS A&OX4 WITH PERIODS OF CONFUSION AND IMPULSIVITY, VITAL SIGNS ARE STABLE. PT TAKES MEDICATIONS WHOLE OR CUT IN HALF WITH PUDDING, TOLERATED WELL, AND TRANSFERS/AMBULATES WITH MIN ASSIST WITH 1 PERSON, GAIT BELT AND WALKER. ACCU CHECKS ACHS WITH LDSS, BLOOD GLUCOSE WNL THIS SHIFT, NO INSULIN ADMINISTERED. PERAMETERS GIVEN FOR LISINOPRIL (HOLD FOR SBP <120) AND FOR METOPROLOL (HOLD FOR PULSE <60BPM). IV IN LUE MAY BE REMOVED. LABORATORY RESULTS DISCUSSED WITH PROVIDER, NO NEW ORDERS AT THIS TIME. ENCOURAGED PO INTAKE. FALL PRECAUTIONS IN PLACE AND NURSING WILL CONTINUE TO MONITOR.
[2018-09-27 19:31] VITALS: BP 98/41
[2018-09-27 23:00] VITALS: BP 112/56
--- NOTE | 2018-09-28 01:19 | NUR ---
PT ASSESSMENT COMPLETED AND VSS. MEDS GIVEN ORDERED AND WELL TOLERATED. FALL PRECAUTIONS IN PLACE. UP TO THE BATHROOM WITH ASST/GAIT/WALKER. PT DID NOT WANT TO SIGN ADMIT PAPERS AFTER BEING ASKED AND SAID THAT HE ONLY SIGNS PAPERS DURING THE DAY. SLEEPING WELL. DENIES NEEDS. WILL CONTINUE TO MONITOR FREQUENTLY.
[2018-09-28 08:00] VITALS: BP 99/55
--- NOTE | 2018-09-28 14:59 | NUR ---
SPOKE WITH PATIENT AND HIS DPOA WARNER ARCHER. BOTH CONFIRMED PATIENT'S PCP AT [facility] IS DR. HARRY CAMPOS. PATIENT WOULD LIKE THIS DOCUMENTED OFFICIALLY ON HIS PAPERWORK FOR DISCHARGE.
--- NOTE | 2018-09-28 18:11 | NUR ---
ASSUMED CARE AT APPROX 0715. PATIENT A/O X4. FORGETFUL. AMBULATING X1 ASSIST GB AND WALKER. PATIENT HYPOTENSIVE, C/O DIZZINESS AND HEADACHE. PATIENT PARTICIPATED IN PT TOLERATED. C/O NAUSEA, ZOFRAN ORDERED, PATIENT REPORTED RELIEF. TOLERATED DRINKING 8 OZ OF NECTAR THICKNED LIQUIDS FROM BREAKFAST TO LUNCH. PATIENT EDUCATED, ENCOURAGED TO INCREASE INTAKE TO SUPPORT BP. PROVIDER NOTIFIED OF SYMPTOMATIC HYPOTENSION, ORDERS RECEIVED TO MONITOR INTAKE AND START IV/BEGIN ORDERED IV FLUIDS IF INTAKE REMAINED BELOW 8 CUPS FLUID/DAY. PATIENT DID NOT MEET GOAL OF 4 CUPS ON DAY SHIFT, IV TEAM PAGED TO START IV ACCESS. AWAITING IV TEAM RN. PATIENT UP IN FOR DINNER, DRANK 360 ML OF NECTAR THICK JUICE. BLOOD SUGARS MONITORED ACHS. I&O MONITORED. BARRIER CREAM APPLIED TO BUTTOX FOR REDNESS, PATIENT CUED TO TURN Q2, BED STEM ROLLER OPERATOR PROVIDED. CM NOTIFIED PATIENT'S CURRENT PCP IS DR. CAMPOS, FACE SHEET WILL NEED UPDATED PRIOR TO DC- REVENUE STAMPER AWARE. FALL PRECAUTIONS IN PLACE.
[2018-09-28 21:17] VITALS: BP 95/56
[2018-09-29] VITALS: BP 95/56
--- NOTE | 2018-09-29 02:11 | NUR ---
PATIENT LAYING IN BED. PT NOT TAKING IN MUCH FLUID. HE IS ON NECTAR THICKENED LIQUIDS. USED NECTAR THICK OJ TO GIVE PO MEDS TONIGHT. IV GOING IN RIGHT UPPER ARM OF NS AT 80ML/HR. GLUCOSE AT HS WAS 172. INSULIN LISPRO 3U GIVEN. PATIENT'S B/P STAYING AROUND 95/56. PATIENT DENIES, PAIN, DIZZINESS, N/V. PATIENT STILL FEELING FATIGUED AND WEAK. CONTINUING TO MONITOR.
[2018-09-29 08:20] VITALS: BP 114/40
[2018-09-29 19:25] VITALS: BP 130/58
--- NOTE | 2018-09-30 04:42 | NUR ---
ASSUMED CARE AT 1900, ASSESSMENT COMPLETED. PT DENIES PAIN, NAUSEA, OR SOB. REPORTS MILD TIGHTNESS IN THROAT WHEN SWALLOWING, R/T TO DYSPHAGIA. TOLERATED TAKING PILLS WHOLE, ONE AT A TIME, IN PUDDING. PT ACKNOWLEDGED HE SHOULD BE DRINKING MORE FLUIDS, ASKED FOR A FRESH JUICE TO ACCOMPLISH THIS. IV FLUIDS INFUSING. HS BLOOD SUGAR 133, HELD INSULIN PER PROTOCOL. EPISODE OF INCONTINENCE OVERNIGHT, CHANGED GOWN AND BLANKETS. NO OTHER CONCERNS, WILL CONTINUE TO MONITOR.
[2018-09-30 08:00] VITALS: BP 120/60
--- NOTE | 2018-09-30 13:34 | NUR ---
TOWARDS POC PT A/O X4, VSS, AFEBRILE. DENIES PAIN. PT/OT/ST WORK WITH HIM. 1 EPISODES OF NV NOTED. PRN MEDS GIVEN, RESOLVED AT LUNCHTIME. NO CONCERNS VOICED. WILL CONTINUE TO MONITOR.
[2018-09-30 21:45] VITALS: BP 153/55
--- NOTE | 2018-09-30 22:00 | NUR ---
MEDS WITH PUDDING, REFUSES TO SIT UP TO TAKE THEM. LYING FLAT IN BED WITHOUT PILLOW UNDER HEAD. IV FLUIDS PER JIMMY IV SITE.
--- NOTE | 2018-10-01 01:00 | NUR ---
UP TO BATHROOM WITH MAX ASSIST OF ONE, WALKER, AND GAIT BELT. PATIENT REQUIRES VERBAL AND PHYSICAL CUES TO KEEP WALKER FROM GETTING TOO FAR AHEAD OF HIM. OFFERED COLD APPLE JUICE WHILE SITTING UP, TOOK SIP. VOIDING PLUS SMALL BM ON TOILET. FAN ON PLUS EXTRA BLANKETS FOR COMFORT, TURNING SELF
[2018-10-01 08:52] VITALS: BP 107/47
--- NOTE | 2018-10-01 10:40 | NUR ---
ASSUMED CARE OF PT AT 0715. PT IS A&OX4, HYPOTENSIVE AT START OF SHIFT BEING GIVEN IV FLUIDS AT THIS TIME AND METOPROLOL HELD PER ORDERS. PT DENIES PAIN AND PARTICIPATED IN SCHEDULED THERAPIES. ACCU CHECKS ACHS AND MANAGED WITH INSULIN NEEDED. PATIENT TAKES MEDICAITONS WHOLE OR CUT IN HALF WITH PUDDING AND NECTAR THICK LIQUIDS. TRANSFERS AND AMBULATES WTIH 1 PERSON MIN-MOD ASSIST WITH GAIT BELT AND WALKER, REQUIRES QUES TO STAND CLOSER TO WALKER. ENCOURAGED PATIENT TO INCREASE ORAL INTAKE OF FLUIDS AND NUTRITION. IV IN RUE RUNNING APPROPRIATELY WITH DRESSING C/D/I W/O REDNESS, DRAINAGE, WARMTH, EDEMA, PAIN. FALL PRECAUTIONS IN PLACE AND NURSING WILL CONTINUE TO MONITOR.
--- NOTE | 2018-10-01 22:00 | NUR ---
IV FLUIDS CONTINUE. TOOK 120 ML COLD NECTAR THICK APPLE JUICE A SPOONFUL AT A TIME AFTER TAKING MEDS WITH PUDDING. INCONTINENT AND USING HIS OWN BRIEFS FROM HOME, UP TO TOILET FOR VOID AND A BM ATTEMPT. NO C/O NAUSEA. REFUSING VITAL SIGNS AND ACCUCHECKS THIS EVENING.
[2018-10-02 06:38] LABS: HEMATOCRIT 25.1 % (42.0-52.0); HEMOGLOBIN 8.4 gm/dL (14.0-18.0); MCHC 33.5 g/dL (28.0-37.0); MCV 101.3 fL (80.0-100.0); PLATELET COUNT 156 thou/uL (150-400); RBC 2.48 mil/uL (4.50-6.00); RDW 21.1 % (10.5-14.5); WBC 6.8 thou/uL (4.0-11.0)
[2018-10-02 06:43] LABS: CREATININE 0.6 mg/dL (0.7-1.3); MAGNESIUM 1.5 mg/dL (1.8-2.4); POTASSIUM 3.1 mmol/L (3.5-5.1)
[2018-10-02 07:15] LABS: ABSOLUTE NEUTROPHILS 4.8 thou/uL (1.4-8.2); ANISOCYTOSIS 2+; METAMYELOCYTES 1 %
--- NOTE | 2018-10-02 15:51 | NUR ---
ASSUMED CARE OF PT AT 0730. PT IS A&OX4 BUT VERY LETHARGIC AND DROWSEY THIS SHIFT, VITAL SIGNS ARE STABLE. CALLED MORNING LABS TO PROVIDER AND NEW ORDERS RECEIVED FOR MAGNESIUM AND POTASSIUM REPLACEMENT AND D/C NS. ACCU CHECKS AND INSULIN D/C'D THIS SHIFT. PT UNABLE TO TOLERATE WHOLE MEDICAITONS THIS SHIFT AND MEDICAITONS WERE GIVEN CRUSHED WHEN POSSIBLE IN PUDDING WITH NECTAR THICK LIQUIDS. TRANSFERS WITH 1 PERSON MIN-MOD ASSIST WITH GAIT BELT AND WALKER. IV RUE FLUSHING APPROPRIATELY, DRESSING C/D/I, AND WITHOUT REDNESS, EDEMA, OR DRAINAGE. ORDERS FOR UA, AWAITING COLLECTION, HAT IN TOILET. FALL PRECAUTIONS IN PLACE AND NURSING WILL CONTINUE TO MONITOR.
[2018-10-02 19:05] VITALS: BP 137/61
--- NOTE | 2018-10-02 23:56 | NUR ---
PT AMBULATING TO BATHROOM WITH WALKER AND ASSIST X1 AND IS TOLERATING FAIR. DENIES PAIN. SOMEWHAT DROWSY. RESTING COMFORTABLY. NO NEEDS VOICED. CALL LIGHT WITHIN REACH. WILL CONTINUE TO PROVIDE FREQUENT OBSERVATION.
[2018-10-03 03:16] LABS: URINE BILIRUBIN NEGATIVE (Negative); URINE BLOOD NEGATIVE (Negative); URINE CLARITY CLEAR; URINE COLOR YELLOW; URINE GLUCOSE-RANDOM* 1+ (Negative); URINE KETONES NEGATIVE (Negative); URINE LEUKOCYTES-REFLEX NEGATIVE (Negative); URINE NITRITE-REFLEX NEGATIVE (Negative); URINE PROTEIN (DIPSTICK) NEGATIVE (Negative); URINE SPECIFIC GRAVITY 1.025 (1.005-1.035)
--- NOTE | 2018-10-03 05:25 | NUR ---
CALLS FOR ASSIST UP TO BATHROOM, WEARS HIS OWN INCONTINENCE BRIEFS, WAS ABLE TO VOID IN SPECIPAN FO A URINE SPECIMEN TO BE SENT TO LAB. QUIET, TURNING SELF IN BED
[2018-10-03 08:05] VITALS: BP 122/52
--- NOTE | 2018-10-03 13:36 | NUR ---
team meeting, recommendation: send updates to [facility] dc with [facility] (pt, ot, st, nursing). check with bes to see if able to do modify diet with regular with nectar thick liquids.
--- NOTE | 2018-10-03 15:29 | NUR ---
dp faxed updates to [facility], dp spoke with Nely at facility and told her about incoming updates, also let her know dc date anticipated is 10/09 and requested they come evaluate by . DP also asked if patient can do [place] thick liquids, Nely said in skilled patient could but they can't for assisted living. Nely said she'd check and contact our darryl Barahona regarding matter.
--- NOTE | 2018-10-03 18:30 | NUR ---
ASSUMED CARE AT APPROX 0715. PATIENT A/O X3-4. FORGETFUL, NEEDING CUES FOR SAFETY AND INITIATION. DENIES PAIN. HYPOTENSIVE, NOT SYMPTOMATIC. PROVIDER NOTIFIED. NECTAR THICKENED LIQUIDS ENCOURAGED. PATIENT UP X1 ASSIST, NEEDING MORE ASSIST THIS AM FOR TRANSFERS. LABS REVIEWED. TEDS ORDERED, PLACED THIS AFTERNOON, PATIENT EDUCATED ON PURPOSE OF TEDS, ALSO EDUCATED ON ORTHOSTATIC BP'S WILL BEGIN TO TAKE. BOWEL REGIMEN REVIEWED AND ADJUSTED BY PROVIDER, PATIENT REPORTED BM TODAY. FALL PRECAUTIONS IN PLACE. SWALLOW PRECAUTIONS IN PLACE. WILL CONTINUE TO MONITOR.
[2018-10-03 19:38] VITALS: BP 121/42
--- NOTE | 2018-10-04 03:44 | NUR ---
SIPS OF NECTAR THICK APPLE JUICE, INCONTINENT ONCE, UP TO BATHROOM WITH CONTACT GUARD FOR SIGNIFICANT VOID. MEDS CRUSHED IN PUDDING
[2018-10-04 08:00] VITALS: BP 119/40
[2018-10-04 08:02] VITALS: BP 120/47
[2018-10-04 08:05] VITALS: BP 106/45
--- NOTE | 2018-10-04 17:51 | NUR ---
ASSUMED CARE AT APPROX 0715. PATIENT A/O X4. FORGETFUL AT TIMES. CALLS APPROPRIATELY ORTHOSTATIC BP'S TAKE THIS AM. HYPOTENSION NOTED, PROVIDER NOTIFIED. PATIENT DENIES SYMPTOMS OF HYPOTENSION, DENIES FEELING DIZZY OR LIGHT HEADED. TOLERATED AM THERAPY. AFTERNOON THERAPIST STATED PATIENT WAS MORE VARIABLE, REQUIRING MAX ASSIST AT TIMES TO AMBULATE WITH WALKER. ORDERS RECEIVED FOR LABS IN AM. PATIENT ENCOURAGED TO DRINK NECTAR THICK FLUIDS, DRANK 4.5 8 OZ CUPS OF LIQUIDS THIS DATE, GOAL IS 8 BY THIS EVENING. RIGHT UPPER ARM IV DRESSING C/D/I, IV PATENT. FALL PRECAUTIONS IN PLACE. RESTING IN RECLINER. WILL CONTINUE TO MONITOR.
[2018-10-04 19:10] VITALS: BP 135/61
--- NOTE | 2018-10-05 03:21 | NUR ---
assumed care at approx 1900 evening 10/04. pt lying in bed with head of bed elevated resting. pt alert and oriented x4, appropriate and cooperative. pt up to bathroom to void. pt took hs meds with pudding tolerating well. pt appears to be sleeping soundly with hourly rounding checks. bed alarm on and call light in reach. will continue to monitor.
[2018-10-05 06:23] LABS: CALCIUM 8.6 mg/dL (8.5-10.1); CREATININE 0.6 mg/dL (0.7-1.3); MAGNESIUM 1.7 mg/dL (1.8-2.4); POTASSIUM 4.1 mmol/L (3.5-5.1)
[2018-10-05 07:49] VITALS: BP 126/52
[2018-10-05 19:24] VITALS: BP 133/54
--- NOTE | 2018-10-05 19:49 | NUR ---
ASSUMED CARE OF PT AT 0715. PT IS A&OX4 AND VITAL SIGNS ARE STABLE. PT TAKES MEDICAITONS WHOLE OR CUT IN HALF IN PUDDING. NECTAR THICK LIQUIDS ENCOURGED. TRANSFERS AND AMBULATES WITH 1 PERSON MOD ASSIST WITH GAIT BELT AND WALKER. KNEE HIGH JAYLIN HOSE TO BLE. SISTER CALLED THIS MORNING AND ASKED TO SPEAK WITH CM AND ST, MESSAGES PASSED TO APPROPRIATE INDIVIDUALS. IV IN RUE SL, FLUSHES APPROPRIATELY, DRESSING C/D/I, SITE W/O REDNESS, DRAINAGE, OR EDEMA. FALL PRECAUTIONS IN PLACE AND NURSING WILL CONTINUE TO MONITOR.
--- NOTE | 2018-10-06 03:54 | NUR ---
TOLERATING MEDS WHOLE WITH PUDDING, NECTAR THICKENED LIQUIDS OFFERED. DECLINES COLACE AND MIRALAX TONIGHT DUE TO RECENT BOWEL MOVEMENT. JAYLIN HOSE OFF AT HS. PATIENT LOOKING FORWARD TO RETURNING TO [facility] ON TUESDAY.
[2018-10-06 07:30] VITALS: BP 112/36
[2018-10-06 07:34] VITALS: BP 116/40
[2018-10-06 07:53] VITALS: BP 95/33
--- NOTE | 2018-10-06 10:20 | NUR ---
cm spoke with admitting at [facility], rt if pt can come back with thicken liquids and mech soft diet (pt requested to be on mech soft, he was on regular earlier in the week), [facility] and if st does vital stem at [facility]?, requested call back and admitting stated that pt sister had call [facility] yesterday and said he going to have to go to rehab before going home "afraid he will not do what he is suppose today. will cont. following as needed for dc needs.
--- NOTE | 2018-10-06 12:42 | NUR ---
DISCHARGE PLANNING. ANTICIPATED DISCHARGE PLANNED FOR TUESDAY. REFERRAL FAXED TO [facility], ADMISSIONS FOR [facility] SKILLED [facility] PATIENT RESIDES AT [facility]. PATIENT WILL NEED DETENTION PRIOR TO RETURNING TO HIS AL. CALL PLACED TO [facility] TO NOTIFY. UNIT CM NOTIFIED. FOLLOWING.
--- NOTE | 2018-10-06 14:40 | H ---
[facility] [place] [address] HISTORY AND PHYSICAL Name: GEORGIA MCCLAIN Room #: 509-P ADM IN .R.#: [id number] Admission: 09/26/18 ������������������ Attend Phys: Oscar Harrell MD Discharge: ������������������ Date of : 52 Report #: [id number] THIS REPORT FOR: //name// CC: Oscar Powell DATE OF SERVICE: 09/26/2018 HISTORY AND PHYSICAL AND POST-ADMISSION PHYSICIAN EVALUATION HISTORY OF PRESENT ILLNESS: The patient is a 68-year-old white male previously known to me who was on the inpatient rehabilitation galicia from 09/12/2018 through 09/17/2018 with a diagnosis of CIDP, suspected aspiration pneumonia, recent respiratory failure, dysphagia, exacerbation of chronic obstructive pulmonary disease. He had been progressing in his rehabilitation with some short distance ambulation up to 50 feet. He was noted to have moderate comprehensive deficits and on a mechanical soft nectar thickened liquid diet. He had worsening problems with increasing lethargy and decreased p.o. intake and had a rapid response that was undertaken and was discharged off the acute rehab galicia on 09/17/2018. He has been medically managed and followed closely by Neurology. He has already completed IVIG infusions. With the multiple neurologists that have rounded, there is the diagnostic possibility of a myopathy instead of a polyneuropathy or they could coexist. The patient was not placed on systemic corticosteroids or other immunosuppressive therapy. While he was acutely hospitalized, he developed paroxysmal atrial fibrillation with rapid ventricular response with cardiology involved. He is to remain on flecainide and metoprolol. He also had some elevations that were mild of his liver function tests. Abdominal ultrasound revealed cholelithiasis and contracted gallbladder, but no pericholecystic fluid. He is currently being monitored with the plan that if he develops new GI symptomatology. His asymptomatic cholelithiasis can be further pursued. The patient was felt to be ready for admission for acute in-hospital inpatient rehabilitation. We will be placing him on a submaximal exercise program with low endurance therapy. The goal is to complete his rehabilitation within this context and then to follow up at a tertiary care center outpatient clinic like [facility] for further neuromuscular evaluation/possible muscle biopsy, etc., if warranted. He has been admitted at this time for acute in-hospital inpatient rehabilitation. PAST MEDICAL HISTORY, SOCIAL HISTORY, ALLERGIES: Please see my prior admission dictation. MEDICATIONS: Please see the current medication listing. This includes vitamins, herbals, and supplements per report. REVIEW OF SYSTEMS: No current complaints of chest pain, shortness of breath or abdominal discomfort. [address] [address] HISTORY AND PHYSICAL Name: GEORGIA MCCLAIN Room #: 509-P [facility] IN ..#: [id number] Admission: 09/26/18 ������������������ Attend Phys: Oscar Harrell MD Discharge: ������������������ Date of : 51 Report #: [id number] PHYSICAL EXAMINATION: GENERAL: He is a pleasant 68-year-old white male in no obvious distress. VITAL SIGNS: Last recorded temperature 97, pulse 58, respirations 18, blood pressure 102/52. The patient is alert, oriented. HEENT: Appeared to be benign. Facies appeared symmetric. CHEST: Sounded clear to auscultation. CARDIOVASCULAR: Regular rate and rhythm. ABDOMEN: Bowel sounds positive, nontender. GENITOURINARY AND RECTAL: Deferred. He is of slender build. NEUROLOGIC: Functional range of motion of both upper extremities. Strength is a grade 4-/5. Lower extremities, functional range of motion with strength of grade 4-/5. He has some decreased proprioception, left large toe. Functionally, he has been doing better with transfers more of a contact guard assistance and he has been ambulating a short distance contact guard with a front-wheeled walker. He does have moderate dysphagia and is on a mechanical soft nectar thickened liquid diet. ASSESSMENT: A 68-year-old white male readmitted for acute in-hospital inpatient rehabilitation. He has the following diagnoses: 1. 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 2. Debilitation secondary to recent hospitalization for aspiration pneumonia, recurrent falls, etc. 3. Electrolyte abnormalities with hypernatremia. 4. Dysphagia. 5. Aspiration pneumonia. 6. Paroxysmal atrial fibrillation. 7. Chronic obstructive pulmonary disease. 8. Diabetes mellitus type 2. 9. Hypothyroidism. 10. Benign prostatic hypertrophy. 11. Hypertension. 12. Schizophrenia with anxiety and depression. PLAN: The patient is admitted for acute in-hospital inpatient rehabilitation. From a postadmission physician evaluation perspective, there are no relevant changes since the preadmission screening. Please see the above review of prior and current medical and functional conditions and comorbidities. Please see the patient's previous and current functional status. As far as risk of complications, the patient has multiple medical comorbidities as noted above. Initial plan of care involves the interdisciplinary acute inpatient rehabilitation program with the goal of maximizing the patient's functional independence, so he can hopefully return back to his prior living situation. Measurable functional goals would be for the patient to become modified independent with transfers, mobility, ADLs, gait training, gait aids, so he can hopefully return back to his assisted living. Prognosis is reasonably good. [facility] [address] [place] [address] HISTORY AND PHYSICAL Name: GEORGIA MCCLAIN Room #: 509-P ADM IN ..#: [id number] Admission: 09/26/18 ������������������ Attend Phys: Oscar Harrell MD Discharge: ������������������ Date of : 52 Report #: [id number] Goals to also improve his swallowing with his dysphagia. Potential barriers would include his multiple medical comorbidities and decreased functional status. The patient meets diagnostic criteria for an acute in-hospital inpatient rehabilitation stay. He meets the medical necessity criteria and we will have the strategy execution consultant physicians continue to follow. He does have the tolerance for therapies. He will be placed on a submaximal exercise program as well as low endurance. He has appropriate discharge goals back to the home setting. This is the assisted living facility. ��������������������������������������������� <ELECTRONICALLY SIGNED> ���������������������������������������� By: Oscar Harrell MD ��������������������������������������������� 10/06/18 1440 [id number] Oscar Harrell MD /[facility]
--- NOTE | 2018-10-06 17:58 | NUR ---
ASSUMED CARE AT APPROX 0715. PATIENT A/O X4. HYPOTENSIVE. ORTHOSTATIC BP'S OBTAINED. PATIENT DENIED FEELING LIGHTHEADED, DIZZY, OR NAUSEOUS WITH LOW BLOOD PRESSURE. MIDODRINE STARTED. PATIENT PARTICIPATED IN THERAPY. SWALLOW PRECAUTIONS MAINTAINED. PATIENT ENCOURAGED TO DRINK NTL. CXR OBTAINED THIS DATE, IMPRESSION REPORTED TO PROVIDER. CHART COPY OBTAINED MINUS DISCHARGE SUMMARY. TENTATIVE DC THIS TUESDAY. FALL PRECAUTIONS IN PLACE. PATIENT ROUNDED ON HOURLY. WILL CONTINUE TO MONITOR.
[2018-10-06 19:24] VITALS: BP 112/41
--- NOTE | 2018-10-07 02:42 | NUR ---
RECENTLY STARTED ON MIDORINE, ENCOURAGED TO DRINK EXAMPLES OF NECTAR THICK LIQUIDS. UP TO BS FOR 300 CC VOID PLUS SATURATED ATTENDS AT THIS TIME. STATES HE HAS BEEN WEARING ATTENDS FOR 2 YEARS NOW AND IT STILL SUPRISES HIM THAT HE CAN'T LAST ALL NIGHT WITHOUT URINATING. MEDS WITH PUDDING
[2018-10-07 07:11] VITALS: BP 138/55
[2018-10-07 07:45] VITALS: BP 128/58
[2018-10-07 19:30] VITALS: BP 110/42
--- NOTE | 2018-10-07 20:23 | NUR ---
ASSUMED CARE OF PT AT 0715. PT IS A&OX4 AND VITAL SIGNS ARE STABLE. TRANSFERS WITH 1 PERSON MIN-MOD ASSIST WITH GAIT BELT AND WALKER. TOLERATED MEDICATIONS IN PUDDING, LARGE ONES CRUSHED OR CUT IN HALF WHEN POSSIBLE, WITH HONEY THICK LIQUIDS. PATIENT STATES THAT HE HAS NOT EXPERIENCED DIZZINESS WHEN CHANGING POSITIONS SINCE STARTING MIDODRINE. JAYLIN HOSE APPLIED ORDERED AND ORTHOSTATIC B/P'S WITH NO SIGNIFICANT CHANGES WHEN POSITION CHANGED. FALL PRECAUTIONS IN PLACE AND NURSING WILL CONTINUE TO MONITOR.
--- NOTE | 2018-10-08 00:04 | NUR ---
ASSUMED CARE OF PT AT 1915. PT IS A&OX4. IS ON ROOM AIR. IS STABLE. DENIES PAIN & DISCOMFORT. IS UP WITH 1 ASSIST, GB, WALKER. FALL PRECAUTIONS & HOURLY ROUNDING CONTINUED THIS SHIFT. PT TAKES MEDS WHOLE IN PUDDING. WEARS BRIEFS FOR INCONTINENCE. REFUSED TO TAKE OFF AT HS. IS ON HEPARIN INJECTIONS. HAS Q2H REPOSITION, BUT IS ABLE TO TURN SELF IN BED. LABS & VITALS REVIEWED. PT IS CURRENTLY RESTING COMFORTABLY IN BED. CALL LIGHT WITHIN REACH. WILL CONTINUE TO MONITOR.
[2018-10-08 08:55] VITALS: BP 96/38
--- NOTE | 2018-10-08 14:55 | HC ---
[facility] [place] [address] CONSULTATION Name: GEORGIA MCCLAIN Room #: 509-P [facility] IN ..#: [id number] Admission: 09/26/18 ������������������ Attend Phys: Oscar Harrell MD Discharge: ������������������ Date of : 52 Report #: [id number] THIS REPORT FOR: //name// CC: Oscar Joyh Sherry DATE OF SERVICE: 10/07/2018 ATTENDING PHYSICIAN: Oscar Harrell MD OIL AGENT: Bhavin Rodriguez, PhD CLINICAL PRESENTATION: The patient is a 68-year-old white male readmitted to the rehab unit for comprehensive inpatient rehabilitation program to assist with activities of daily living and self-care along with mental status for treatment of chronic inflammatory demyelinating polyneuropathy. His diagnoses on rehabilitation admission included debilitation secondary to recent hospitalization for aspiration pneumonia and recurrent falls, electrolyte abnormalities with hypernatremia, dysphagia, aspiration pneumonia, paroxysmal atrial fibrillation, COPD, diabetes mellitus type 2, hypothyroidism, benign prostatic hypertrophy and hypertension. The medical records have the patient as having been diagnosed with schizophrenia. However, the patient does not report a history of being diagnosed or treated for schizophrenia. However, current and previous treatment for bipolar disorder is reported. The patient has a remote hospitalization that included ECT treatment for depression over 40 years ago. His current mental status appears stable and well maintained. The patient was seen for an initial neurobehavioral status exam on 09/12/2018. He was found to have a major neurocognitive disorder along with bipolar disorder with psychotic features that is stable. Schizophrenia was reported by history. Prior to this most recent hospitalization, he was living at an independent usp community at [facility]. He is hoping to return to that living arrangement. The patient is a college graduate. 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 His history of mental illness is remote, beginning in the 1970s following the end of a relationship. Patient has maintained psychiatric treatment. He has never and has no children. TECHNIQUES UTILIZED: Clinical interview, review of medical records, staff consultation and behavioral observation, mini mental status exam 2 standard version and clock drawing. EXAMINATION FINDINGS: The patient was alert and cooperative with the assessment. He accurately described events surrounding his hospital admission. [facility] [address] [place] [address] CONSULTATION Name: GEORGIA MCCLAIN Room #: 509-P [facility] IN [facility].#: [id number] Admission: 09/26/18 ������������������ Attend Phys: Oscar Harrell MD Discharge: ������������������ Date of : 52 Report #: [id number] Current symptoms include fatigue and tiredness along with lightheadedness and nausea. He does not present with aphasia. His thoughts are logical and goal oriented. There is no evidence of thought disorder or report of auditory or visual hallucinations. He describes subjective feelings of anxiety as a desire to return to his prior living arrangement. He does not report subjective depression. Sleep is within normal limits. Appetite, energy level and memory along with word finding are reported as poor. His performance on the MMSE 2 brief version was within normal limits with a raw score of 14 of 16. The patient was 3/3 for initial registration, 5/5 for orientation to time and 4/[address]. He was 2/3 for immediate recall of 3 items after a brief time delay and distraction. His performance has improved in comparison to his previous evaluation. Performance on the MMSE 2 standard version was 24 of 30, which is a T score of 33 and percentile rank of 4. He was 2/5 for serial sevens, 2/2 for naming, 1/1 for repetition, 3/3 for auditory comprehension. He could read and follow a single command and write a sentence. The patient was unable to accurately copy a simple geometric design. The patient also was unable to successfully draw a clock and set the hands at a designated time. Impairment in visual spatial construction, planning and organization are suggested. He is presenting with deficits in neurocognitive functioning. However, his level of functioning appears improved in comparison to the previous assessment. As indicated earlier, diagnosis of schizophrenia may not be accurate. History of bipolar disorder is more consistent with his level of functioning and treatment protocol. DIAGNOSTIC IMPRESSION: Bipolar disorder without psychotic features -- stable at this time. Major neurocognitive disorder (dementia), unspecified, without behavior disorder, extent to be determined, likely in the mild range. RECOMMENDATIONS: Continued psychiatric followup upon discharge to assist in the management of medication for mood disorder. He also may benefit from psychotherapy in his usp community to assist with overall adjustment. The use of compensatory strategies for deficits in visual spatial construction, attention/concentration and variability in memory will also be helpful. Improve social support through group interventions and recreational activity will also benefit his overall mood and adjustment. Verbal praise and complements during participation in therapies will also help his self-confidence. [address] [address] CONSULTATION Name: GEORGIA MCCLAIN Room #: 509-P [facility] IN M.R.#: [id number] Admission: 09/26/18 ������������������ Attend Phys: Oscar Harrell MD Discharge: ������������������ Date of : 52 Report #: [id number] Thank you very much for allowing me to provide the consultation on this patient. ��������������������������������������������� <ELECTRONICALLY SIGNED> ���������������������������������������� By: Bhavin Rodriguez, PhD ��������������������������������������������� 10/08/18 1455 1306 [id number] Bhavin Rodriguez, PhD /nt
[2018-10-08 20:00] VITALS: BP 95/43
--- NOTE | 2018-10-08 20:40 | NUR ---
ASSUMED CARE OF PT AT 0715. PT IS A&OX4 AND VITAL SIGNS ARE STABLE. TRANSFERS WITH 1 PERSON MIN-MOD ASSIST WITH GAIT BELT AND WALKER. TOLERATED MEDICATIONS IN PUDDING, LARGE ONES CRUSHED OR CUT IN HALF WHEN POSSIBLE, WITH HONEY THICK LIQUIDS. JAYLIN HOSE APPLIED ORDERED AND ORTHOSTATIC B/P WITH NO SIGNIFICANT CHANGES WHEN CHANGING POSITION. FALL PRECAUTIONS IN PLACE AND NURSING WILL CONTINUE TO MONITOR.
--- NOTE | 2018-10-09 03:15 | NUR ---
TOLERATING MEDS IN PUDDING WITHOUT COUGHING. TURNING SELF IN BED. INCONTINENT URINE. HAS SHAVED WELL FOR VITASTIM TODAY
[2018-10-09] MEDS ORDERED: COLACE100 MG PO (07:46)
[2018-10-09] MEDS ORDERED: TAMBOCOR 100 M100 M1 PO (07:46)
[2018-10-09 09:31] VITALS: BP 98/52
--- NOTE | 2018-10-09 10:15 | NUR ---
cc already request, pt to dc to snf at [facility]. ani rapp. bedside nurse to call report to [phone].
[2018-10-09 11:23] VITALS: BP 112/54
--- NOTE | 2018-10-09 12:09 | NUR ---
kyra spoke with Nikki at [facility], patient has not skilled days left. Nikki is going to contact case management nurse [place] (patient to [place] today)
--- NOTE | 2018-10-09 14:03 | NUR ---
ASSUMED CARE OF PT AT 0715. PT IS A&OX4 AND VITAL SIGNS ARE STABLE. PT REPORTED FEELING DIZZY THIS AM WITH THERAPY AND STAFF WAS UNABLE TO OBTAIN ORTHOSTATIC B/P. PT UNABLE TO TOLERATE PO MEDICATIONS WHOLE AND REQUIRED THAT MEDICAITONS BE CRUSHED WHEN ABLE AND PUT IN PUDDING WITH NECTAR THICK LIQUIDS. TRANSFERS AND AMBULATES WITH 1 PERSON ASSIST WITH GAIT BELT AND WALKER. IV REMOVED FROM RUE PRIOR TO DISCHARGE. SITE WNL, DRESSING C/D/I. MAHI ARCHER NOTIFIED OF DISCHARGE TIME AND ARRIVED ON UNIT AT APPROXIMATELY 1315. REPORT CALLED TO ASHLEY AT [facility] AT APPROXIMATELY 1230. CHART COPY SENT WITH PT. DISCHARGE EDUCATION GIVEN TO PT AND [id number]. DISCHARGE PAPERWORK SIGNED. PERSONAL BELONGINGS REMOVED FROM ROOM BY [id number]. TRANSPORT ASSISTED PT TO MEDICAL MALL MAIN ENTERANCE.
== END 2018-10-09 14:00 | DRG 73 ==
LOC: ENTRNSPT 10-09 13:35 → EDTRNSPTSTS 10-09 13:45
PROVIDERS: Nurse Practitioner; ADMIT Physical Medicine & Rehabilitation
DX: G61.81 Chronic inflammatory demyelinating polyneuritis (principal); J69.0 Pneumonitis due to inhalation of food and vomit; E87.0 Hyperosmolality and hypernatremia; R13.10 Dysphagia, unspecified; I48.0 Paroxysmal atrial fibrillation; J44.9 Chronic obstructive pulmonary disease, unspecified; E11.9 Type 2 diabetes mellitus without complications; E03.9 Hypothyroidism, unspecified; N40.0 Benign prostatic hyperplasia without lower urinary tract symptoms; I10 Essential (primary) hypertension; F41.9 Anxiety disorder, unspecified; F20.9 Schizophrenia, unspecified; E87.8 Other disorders of electrolyte and fluid balance, not elsewhere classified; F31.9 Bipolar disorder, unspecified; F01.50 Vascular dementia, unspecified severity, without behavioral disturbance, psychotic disturbance, mood disturbance, and anxiety; I95.9 Hypotension, unspecified; Z79.899 Other long term (current) drug therapy
CPT/HCPCS: 10112